=== PATIENT | female | born 1960 | race Caucasian/White ===

== ENCOUNTER 2018-02-08 07:30 | Inpatient (IN) | payer BC ==
--- NOTE | 2018-01-31 04:08 | HP ---
HISTORY AND PHYSICAL: DATE OF ADMISSION/SURGERY: 02/08/18 SURGEON: aPrisa Taylor MD.* (Dictated by DE Gandara) PROCEDURE: Left total knee arthroplasty. CHIEF COMPLAINT: Left knee pain. HISTORY OF PRESENT ILLNESS: Mr. Torres is a 57-year-old female with continued complaints of left knee pain. She has failed conservative management and elected to proceed with a left total knee arthroplasty which is scheduled for with Dr. Taylor. PAST MEDICAL HISTORY: 1. Chronic pain. 2. High cholesterol. 3. Hypertension. 4. Hypothyroidism. 5. Depression. PAST SURGICAL HISTORY: 1. Bilateral carpal tunnel release. 2. Bilateral Achilles tendon repair. 3. Removal of a growth on her lung. 4. Kidney stone removal on . CURRENT MEDICATIONS: 1. Venlafaxine 75 mg daily. 2. Vitamin D. 3. Simvastatin 10 mg daily. 4. Synthroid 75 mcg daily. 5. Lisinopril 10 mg daily. 6. Tramadol 50 mg daily as needed. 7. [place] 7.5/325 mg every 6 hours as needed. 8. Gabapentin 100 mg 2 to 3 times a day. ALLERGIES: None. FAMILY HISTORY: Cancer, diabetes, coronary artery disease and stroke. SOCIAL HISTORY: She is a 57-year-old female. She lives with her . She works as a county icu clerk. She smokes 3 to 4 cigarettes a day. She does not use drugs or alcohol. REVIEW OF SYSTEMS: A complete 14-point review of systems is reviewed by the patient is positive for hypothyroidism. She denies history of DVT, PE, hepatitis C, HIV or anesthesia problems. PHYSICAL EXAMINATION GENERAL: She is well developed, well nourished, in no acute distress. VITAL SIGNS: She stands 5 feet 5 inches tall, weighs 228 pounds. Her blood pressure is 132/84, heart rate is 97. HEENT: Normocephalic, atraumatic. NECK: Supple. No palpable lymph nodes. PULMONARY: Lungs are clear to auscultation bilaterally. CARDIO: Regular rate and rhythm. Strong S1 and S2. ABDOMEN: Soft, nontender, nondistended. NEUROLOGIC: She is alert and oriented x3. Cranial nerves II through XII are intact. MUSCULOSKELETAL: Left lower extremity skin is intact. There is no open wounds or abrasions. She has some tenderness over the medial and lateral joint line. There is a moderate joint effusion. Range of motion is 10 to 110 degrees bilaterally with patellofemoral crepitus. She has 2+ dorsalis pedis pulses, intact sensation. Her lower extremity muscular groups strengths are intact at 5/ 5. ASSESSMENT AND PLAN: Ms. Torers is a 57-year-old female with complaints of left knee pain secondary to end-stage osteoarthritis. She has failed conservative management and elected to proceed with a left total knee arthroplasty which is scheduled for 02/08/[address] Taylor discussed the risks and benefits of surgery at today's visit and all of her questions were answered. Coumadin was sent to her pharmacy for postoperative DVT prophylaxis. She will see Dr. Taylor back 2 weeks after the surgery. DE GANDARA [id number]/[facility] #: [id number] [place]
[~2018-02-08 07:30] MED LIST: Buffered Lidocaine 0.9% SYRIN* 5 ML/SYR SYRINGE INTRADERM ONE; Sodium Citrate/Citric Acid* 15 ML UDC PO ONE
--- OUTSIDE RECORDS SUMMARY | 2018-02-08 08:13 | XMS REPORT ---
:1960 External Reference #:[id number] Author Organization [employer] Address [address] [address] Phone [phone] Care Team Providers Name Role Phone Marcella Navarrete FNP Primary Care Physician Unavailable Payers Type Date Identification Numbers Payment Provider Subscriber Commercial Effective: Policy Number: [id number] [employer] Steffanie Torres 2012 PayID: [id number] [address] [address] [place] [address] Problems Date Description Provider Status Onset: 06/14/2015 Localized, primary osteoarthritis Parisa Taylor M.D. Active Family History Date Family Member(s) Problem(s) Comments General Arthritis General Breast Cancer General Liver Cancer General [place] General Stroke General Diabetes General Heart Disease Social History Type Date Description Comments Lives With Spouse Occupation accountimg food and beverage assistant ETOH Use Denies alcohol use Smoking Patient is a former smoker Exercise Type/Frequency Does not exercise Allergies, Adverse Reactions, Alerts Date Description Reaction Status Severity Comments 09/03/2014 NKDA active Medications Medication Date Status Form Strength Qnty SIG Indications Ordering Provider Coumadin 01/28/ Active Tablets 2mg 90tabs take 1-3 Parisa2017 tabs by Aury Taylor mouth at 5 at night as directed Simvastatin / Active Tablets 10mg 90tabs 1 by mouth Unknown 0000 every night at bedtime Synthroid / Active Tablets 75mcg 30tabs 1 by mouth Unknown 0000 every day Lisinopril 00/00/ Active Tablets 20mg 30tabs 1 by mouth Unknown 0000 every day Tramadol HCL 00/ Active Tablets 50mg 2 tablets Unknown 0000 tid prn Hydrocodone-A / Active Tablets 7.5-325mg 1 to 2 po Unknown cetaminophen 0000 at hs Gabapentin / Active Capsules 100mg 1 po bid Unknown 0000 for 1 week, than 2 po bid for 1 week, than 3 po tid.. Venlafaxine / Active Tablets 50mg take 1 Unknown HCL 0000 tablet by mouth every day with 150mg dose Keflex 07/10/ Hx Capsules 500mg 28caps 1 tab by Stacia 2014 - mouth randy Hopper M.D. 10/26/ times a 2016 day for 7 days Percocet 11/02/ Hx Tablets 5-325mg 80tabs 1-2 tabs Parisa 2013 - by mouth Aury Taylor 07/09/ q6 as 2014 needed pain Advil / Hx Capsules 200mg 200cap as needed Unknown 0000 - s 2014 Aleve / Hx Capsules 220mg 60caps 1 by mouth Unknown 0000 - twice a 06/14/ day as 2014 needed Effexor XR / Hx Caps ER 75mg 1 by mouth Unknown 0000 - 24HR every day 2016 Glucosamine / Hx Capsules 1 by mouth Unknown Chondroitin 0000 - every day 1500 Complex 2014 Vitamin D / Hx Tablets 30tabs every day Unknown 0000 - by mouth 2016 Motrin Ib / Hx Tablets 600mg 1 tid Unknown 0000 - 2016 Voltaren / Hx Gel 1% apply to Unknown 0000 - affected twice 2016 a day, as needed Medications Administered in Office Medication Date Status Form Strength Qnty SIG Indications Ordering Provider Depomedrol Administered Injection Parisa 80MG 015 Aury Taylor Injection Administered Injection Stacia Hyaluronan Or Asha Hopper M.D. Derivative, Euflexxa Per Dose Injection Administered Injection Stacia Hyaluronan Or Asha Hopper M.D. Derivative, Euflexxa Per Dose Injection Administered Injection Stacia Hyaluronan Or Asha Hopper M.D. Derivative, Euflexxa Per Dose Vital Signs Date Vital Result Comment 01/28/2018 Height 65.5 inches 5'5.50" Weight 229.00 lb Heart Rate 97 /min BP Systolic 132 mmHg BP Diastolic 84 mmHg Respiratory Rate 16 /min Body Temperature 98.8 F Pain Level 6 BMI (Body Mass Index) 37.5 kg/m2 10/27/2017 Height 65.5 inches 5'5.50" Weight 228.00 lb BP Systolic 140 mmHg BP Diastolic 84 mmHg Body Temperature 97.7 F BMI (Body Mass Index) 37.4 kg/m2 07/10/2015 Height 66 inches 5'6" Weight 246.00 lb Heart Rate 80 /min BP Systolic Sitting 112 mmHg BP Diastolic Sitting 88 mmHg BMI (Body Mass Index) 39.7 kg/m2 07/05/2015 Heart Rate 80 /min BP Systolic Sitting 116 mmHg BP Diastolic Sitting 80 mmHg 06/14/2015 Height 66 inches 5'6" Weight 260.00 lb Heart Rate 78 /min BP Systolic Sitting 130 mmHg BP Diastolic Sitting 80 mmHg BMI (Body Mass Index) 42.0 kg/m2 11/02/2014 Height 66 inches 5'6" Weight 293.00 lb Heart Rate 78 /min BP Systolic Sitting 120 mmHg BP Diastolic Sitting 80 mmHg BMI (Body Mass Index) 47.3 kg/m2 10/03/2014 Heart Rate 78 /min BP Systolic Sitting 128 mmHg BP Diastolic Sitting 88 mmHg 09/26/2014 Heart Rate 88 /min BP Systolic Sitting 128 mmHg BP Diastolic Sitting 82 mmHg 09/19/2014 Heart Rate 80 /min BP Systolic Sitting 130 mmHg BP Diastolic Sitting 88 mmHg 09/03/2014 Height 66 inches 5'6" Weight 290.00 lb Heart Rate 82 /min BP Systolic Sitting 132 mmHg BP Diastolic Sitting 80 mmHg BMI (Body Mass Index) 46.8 kg/m2 Results Description No Information Procedures Date CPT Code Description Status 06/14/2015 Inject/Drain Joint/Bursa Major Completed 10/03/2014 Inject/Drain Joint/Bursa Major Completed 09/26/2014 Inject/Drain Joint/Bursa Major Completed 09/19/2014 Inject/Drain Joint/Bursa Major Completed 09/03/2014 43443 Rad Exam; Knee Comp Completed Encounters Type Date Location Provider CPT E/M Dx Office Visit 10/27/2017 [facility] Paris[facility] Taylor M.D. 37784 M25.561 8:[facility] M25.562 M25.461 M25.462 M17.0 Office Visit 07/10/2015 8:40a [facility] [place], [address] 719.46 [facility] [facility] [place] RPA-C Office Visit 07/05/2015 11:30a [facility] Paris[facility] Taylor M.D. 19617 715.16 [facility] 719.46 719.06 715.36 Office Visit 11/02/2014 9:30a [facility] Parisa Taylor M.D. 45888 715.16 Of [facility] Office Visit 09/03/2014 9:15a [facility] Stacia Hopper, 25343 719.46 [facility] Future Appointment(s):02/21/2018 9:45 am - Parisa [facility] M.D. at [facility]02/08/2018 8:00 am - [place] Kwong at [facility]02/08/2018 8:00 am - Jet Uriostegui PA-C at [facility]02/08/2018 8:00 am - [place] Messer at [facility]02/08/2018 8:00 am - Paris[facility] M.D. [facility]01/28/2018 - Parisa Taylor M.D.M25.562 Pain in left kneeFollow up:Follow up: 2 weeks after purllpyQ03.462 Effusion, left kneeM17.0 Bilateral primary osteoarthritis of knee
--- OUTSIDE RECORDS SUMMARY | 2018-02-08 08:13 | XMS REPORT ---
:1960 External Reference #:[id number] Author Organization [facility] Address [address] [address] Phone [phone] Care Team Providers Name Role Phone Marcella Navarrete NP Care Team Information Family Services Manager Unavailable Payers Type Date Identification Numbers Payment Provider Subscriber Commercial Effective: Policy Number: [id number] [facility] [employer] Steffanie Torres 2011 PayID: [id number] [address] [address] [place] [address] Health Maintenance Expires: 11/14/2014 Policy Number: [facility] Cesar Torres [facility] ([facility] – [place], [place]) [id number] [place] Group Number: [id number] [address] [address] Group Name: [place] [address] PayID: [id number] Problems Date Description Provider Status Onset: 08/06/2003 Benign essential hypertension Debbie Isidro NP Active Onset: 08/06/2003 Obesity Debbie Isidro NP Active Onset: 03/07/2008 Hypothyroidism Serafin Roger MD Active Onset: 10/09/2014 Localized, primary osteoarthritis DigiovanCely michelleMarcella, AUTOCUTTER Active Onset: 01/01/2014 Localized, primary osteoarthritis DigiovanMarcella michelle, AUTOCUTTER Active of the lower leg Onset: 01/01/2014 Low back pain Marcella Navarrete, AUTOCUTTER Active Onset: 03/21/2012 Mixed hyperlipidemia KellieiovanMarcella michelle, AUTOCUTTER Active Onset: 06/10/2010 Vitamin D deficiency DigiovanMarcella michelle, AUTOCUTTER Active Onset: 12/11/2009 Gastroesophageal reflux disease Marcella Navarrete, AUTOCUTTER Active Onset: 12/11/2009 Insomnia Marcella Navarrete NP Active Onset: 04/16/2015 Female climacteric state Marcella Navarrete NP Active Family History Date Family Member(s) Problem(s) Comments Mother Cancer, Breast Social History Type Date Description Comments Education Highest level completed, 12th grade Marital Status Lives With Spouse 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 ETOH Use Occasionally consumes alcohol Recreational Drug Use Denies Drug Use Daily Caffeine Consumes on average 1 soda per day Exercise Limitations Joint Pain Allergies, Adverse Reactions, Alerts Date Description Reaction Status Severity Comments 11/13/2008 NKDA active Medications Medication Date Status Form Strength Qnty SIG Indications Ordering Provider Levothyroxine Active Tablets 75mcg 90tabs 1 by E03.9 Digiovanna Sodium 017 mouth , every Marcella, day AUTOCUTTER Tramadol HCL ER Active Tablets ER 200mg 1 by M19. Unknown 016 24HR mouth every day M54.5 Lisinopril 07/25/2015 Active Tablets 10mg 90tabs Take 1 I10 Digiovanna, Tablet GAURAV Naranjo Daily Hydrocodone-Ac 05/20/2015 Active Tablets 7.5-325 1 every 6 M1. [place] etaminophen mg hours as Moo needed Venlafaxine 04/14/2015 Active Caps ER 75mg 90caps Take 1 N95.1 Digiovanna, HCL ER 24HR Capsule GAURAV Naranjo Daily G47.00 Voltaren 03/06/2015 Active Gel 1% apply 2 grams . Unknown to affected area four times a day as needed Simvastatin 09/26/2012 Active Tablets 10mg 90t Take 1 Tablet E78.2 Digiovanna abs Every Day In , The Evening Marcella AUTOCUTTER Acetaminophen Active Tablets 500mg 2 po q4h prn Unknown Extra Strength Gabapentin Active Capsules 300mg tid Moo Schrader Levothyrn(S) Tab 05/10/2016 - Hx 0.075 90u take 1 tablet E03.9 Digiovanna 0.075MG 05/03/2017 mg nit every day , s Marcella, AUTOCUTTER Venlafaxine HCL 04/24/2016 - Hx Tablets ER 75mg 7ta 1 po daily Digiovanna ER 05/01/2016 24HR bs , Marcella, AUTOCUTTER Levothyrn(S) Tab 11/25/2015 - Hx 0.075 90u Take 1 Tablet Digiovanna 0.075MG 11/25/2015 mg nit Daily , s Marcella, AUTOCUTTER Benzonatate 06/07/2015 - Hx Capsules 200mg 30c 1 by mouth 465.9 Digiovanna 07/16/2015 aps every 8 hours , as needed for Marcella, cough, may AUTOCUTTER cause drowsiness Tramadol HCL 03/06/2015 - Hx Tablets 50mg 2 by mouth up M54.5 Unknown 05/03/2017 to 4X/day as needed M19.91 Glucosamine-MSM 03/06/2015 - Hx Tablets 1000mg OTC 1 po M19.91 Unknown 11/15/2015 daily Oxycodone-Acetamin 11/01/2014 - Hx Tablets 5-325mg 120tab 2 by verona Taylor 02/14/2015 s mouth 6 Vivek, HRS as DR needed pain Lisinopril 10/09/2014 - Hx Tablets 20mg 90tabs take 1/2 Digiovann 07/25/2015 tablet a, daily Marcella, AUTOCUTTER Levothyroxine 09/29/2013 - Hx Tablets 75mcg 90tabs 1 by E03.9 Digiovann Sodium 05/10/2016 mouth a, every day Marcella, AUTOCUTTER Effexor XR 04/18/2013 - Hx Caps ER 75mg 90caps 1 po qd Digiovann 04/14/2015 24HR a, Marcella, AUTOCUTTER Amoxicillin 03/31/2007 - Hx Capsules 500mg 30caps 1 Tab PO Marissa Isidro 03/07/2008 tid X 10 se,AUTOCUTTER Days Mobic 02/21/2007 - Hx Tablets 7.5mg 60tabs 1-2 PO qd Marissa Isidro 03/07/2008 se,AUTOCUTTER Soma 02/10/2007 - Hx Tablets 350mg 30tabs 1/2-1 po Marissa Isidro 03/07/2008 tid prn se,AUTOCUTTER Entex Pse 02/05/2005 - Hx Tablets 600mg;120 20tabs 1po q 12h Marissa Isidro 03/07/2008 mg se,AUTOCUTTER Levoxyl 08/13/2003 - Hx Tablets O.O5mg 30tabs 1 po qd Marissa Isidro 03/07/2008 se,AUTOCUTTER Zantac 08/13/2003 - Hx Tablets 150mg 30tabs 1 po QHS Marissa Isidro 03/07/2008 se,AUTOCUTTER Ibuprofen - Hx Tablets 200mg prn Pain Unknown 03/06/2015 Immunizations CPT Code Status Date Vaccine Reaction Lot # [id number] Given 08/16/2015 Fluvirin Immunization [facility] 05765 Given 04/16/2015 Pneumococcal 23 Immunization [id number] Adult Or Immunosuppressed Patient 94155 Given 07/20/2014 Afluria Or Fluvirin Flu Vac Intramuscular 58797 Given 08/16/2012 Afluria Or Fluvirin Flu Vac Intramuscular 75696 Given 09/18/2011 Afluria Or Fluvirin Flu Vac VIS DATE 06/09/11 Intramuscular 75790 Given 12/11/2009 Tdap (Adacel) Ages 7 And Above Only 16133 Given 09/29/2002 Afluria Or Fluvirin Flu Vac Intramuscular 32245 Refused 11/02/2017 Influenza Vac, 3 Yrs & Older, Quadrivalent, Split, Im Use Vital Signs Date Vital Result Comment 01/17/2018 Weight 231.56 lb Heart Rate 76 /min BP Systolic 110 mmHg BP Diastolic 64 mmHg Respiratory Rate 18 /min Height 65.25 inches 5'5.25" 01/17/18 BMI (Body Mass Index) 38.2 kg/m2 11/02/2017 Weight 229.00 lb Heart Rate 88 /min BP Systolic 130 mmHg BP Diastolic 80 mmHg Respiratory Rate 18 /min Height 65.25 inches 5'5.25" BMI (Body Mass Index) 37.8 kg/m2 05/03/2017 Weight 294.00 lb Heart Rate 74 /min BP Systolic 120 mmHg BP Diastolic 80 mmHg Respiratory Rate 18 /min Height 65.25 inches 5'5.25" BMI (Body Mass Index) 48.5 kg/m2 10/28/2016 Weight 278.00 lb Heart Rate 82 /min BP Systolic 122 mmHg BP Diastolic 78 mmHg Height 65.25 inches 5'5.25" BMI (Body Mass Index) 45.9 kg/m2 04/24/2016 Weight 272.00 lb Heart Rate 82 /min BP Systolic 128 mmHg BP Diastolic 72 mmHg Respiratory Rate 18 /min Height 65.25 inches 5'5.25" BMI (Body Mass Index) 44.9 kg/m2 10/15/2015 Weight 248.00 lb Heart Rate 84 /min BP Systolic 142 mmHg L/LG BP Diastolic 92 mmHg L/LG Respiratory Rate 20 /min Height 65.25 inches 5'5.25" BMI (Body Mass Index) 40.9 kg/m2 06/07/2015 Body Temperature 99.0 F Weight 254.00 lb Heart Rate 98 /min BP Systolic 138 mmHg BP Diastolic 76 mmHg Respiratory Rate 19 /min Height 65.25 inches 5'5.25" O2 % BldC Oximetry 94 % Ra BMI (Body Mass Index) 41.9 kg/m2 04/16/2015 Weight 258.00 lb Down 11# Heart Rate 94 /min BP Systolic 142 mmHg R/LG BP Diastolic 88 mmHg R/LG Respiratory Rate 20 /min Height 65.25 inches 5'5.25" BMI (Body Mass Index) 42.6 kg/m2 01/22/2015 Weight 269.00 lb Down 25# Heart Rate 98 /min BP Systolic 148 mmHg R/LG BP Diastolic 90 mmHg R/LG Respiratory Rate 20 /min Height 65.5 inches 5'5.50" BMI (Body Mass Index) 44.1 kg/m2 10/09/2014 BP Systolic 136 mmHg BP Diastolic 96 mmHg 10/09/2014 Weight 294.00 lb Heart Rate 74 /min BP Systolic 132 mmHg BP Diastolic 90 mmHg Respiratory Rate 18 /min Height 66 inches 5'6" 04/02/2014 BP Systolic 128 mmHg BP Diastolic 82 mmHg 04/02/2014 Weight 300.00 lb Heart Rate 88 /min BP Systolic 150 mmHg BP Diastolic 90 mmHg Respiratory Rate 20 /min Height 66 inches 5'6" 06/10/2009 Weight 270.00 lb Heart Rate 84 /min BP Systolic 130 mmHg BP Diastolic 92 mmHg 11/13/2008 Weight 265.00 lb Heart Rate 76 /min BP Systolic 136 mmHg BP Diastolic 76 mmHg 03/07/2008 Weight 254.00 lb Heart Rate 79 /min BP Systolic 145 mmHg BP Diastolic 90 mmHg 03/03/2007 Heart Rate 70 /min BP Systolic 138 mmHg BP Diastolic 88 mmHg 02/10/2007 Heart Rate 70 /min BP Systolic 132 mmHg BP Diastolic 72 mmHg 07/24/2004 Weight 194.00 lb Heart Rate 68 /min BP Systolic 120 mmHg BP Diastolic 78 mmHg 08/13/2003 BP Systolic 120 mmHg BP Diastolic 80 mmHg Results Test Date Test Result H/L Range Note Laboratory test 01/17/2018 Hepatitis C Virus <pending> finding Antibody Laboratory test 10/28/2017 TSH 1.82 uIU/mL 0.35-4.94 1 finding Magnesium 2.1 mg/dL 1.5-2.7 1 Vit D25oh 31 ng/mL 31-100 1 Lipid Treatment 10/28/2017 Cholesterol 167 mg/dL 50-199 1 Triglycerides 140 mg/dL 30-200 1 HDL 45 mg/dL 35-85 1, 2 Chol/ HDL Ratio 3.7 ratio 3.7-5.6 1 VLDL 28 mg/dL 2-29 1 LDL (Calc) 94 mg/dL 20-99 1, 3 Alt 16 U/L 3-42 1 Ast 14 U/L 8-42 1 Basic (BMP) 10/28/2017 Sodium 140 mmol/L 135-146 1, 4 Potassium 4.3 mmol/L 3.5-5.2 1 Chloride# 102 mmol/L 97-110 1, 5 Carbon Dioxide 29 mmol/L 24-34 1 Glucose 94 mg/dL 70-105 1 Creatinine 0.8 mg/dL 0.5-1.4 1 Calcium 9.9 mg/dL 8.5-10.2 1 Non Tamiko Egfr >60 >60 1, 6 Tamiko Egfr >60 >60 1, 7 Anion Gap 9 mmol/L 7-16 1, 8 BUN 15 mg/dL 6-26 1 CBC With Auto Diff 10/28/2017 WBC 9.5 K/uL 4.1-11.0 1 RBC 4.95 M/uL 4.00-5.40 1 Hemoglobin 16.4 gm/dL High 12.0-16.0 1 Hematocrit 47.4 % High 36.0-47.0 1 MCV 95.9 fL 80.0-97.0 1 MCH 33.2 pg High 27.0-32.0 1 MCHC 34.6 g/dL 32.0-36.0 1 RDW 14.7 % High 11.5-14.5 1 PLT Count 256 K/ul 140-400 1 MPV 9.5 FL 7.1-10.7 1 Neutrophil 59.6 % 35.0-75.0 1 Lymphocyte 28.5 % 16.0-52.0 1 Monocyte 9.5 % 2.0-10.0 1 Eosinophil 1.7 % 0.0-5.0 1 Basophil 0.7 % 0.0-4.0 1 Abs Neutrophils 5.6 K/uL 2.1-8.0 1 Abs Lymphocytes 2.7 K/uL 0.8-5.5 1 Abs Monocytes 0.9 K/uL 0.1-1.0 1 Abs Eosinophils 0.2 K/uL 0.0-0.5 1 Abs Basophils 0.1 K/uL 0.0-0.3 1 Laboratory test finding 05/03/2017 Fit(Fecal Occult Blood) Negative Negative 9 Lipid Treatment 05/03/2017 Cholesterol 187 mg/dL 50-199 Triglycerides 236 mg/dL High 30-200 HDL 42 mg/dL 35-85 10 Chol/ HDL Ratio 4.5 ratio 3.7-5.6 VLDL 47 mg/dL High 2-29 LDL (Calc) 98 mg/dL 20-99 11 Alt 22 U/L 3-42 Ast 17 U/L 8-42 Laboratory test finding 04/26/2017 TSH 2.30 uIU/mL 0.35-4.94 12 Vit D,25 Hydroxy 30 ng/mL Low 31-100 12 Basic (BMP) 04/26/2017 Sodium 140 mmol/L 135-146 12, 13 Potassium 4.5 mmol/L 3.5-5.2 12 Chloride# 104 mmol/L 97-110 12, 14 Carbon Dioxide 27 mmol/L 24-34 12 Glucose 104 mg/dL 70-105 12 BUN 16 mg/dL 6-26 12 Creatinine 0.9 mg/dL 0.5-1.4 12 Calcium 9.8 mg/dL 8.5-10.2 12 Non Tamiko Egfr >60 >60 12, 15 Tamiko Egfr >60 >60 12, 16 Anion Gap 14 mmol/L 7-16 12, 17 Lipid Treatment 10/20/2016 Cholesterol 179 mg/dL 50-199 18 Triglycerides 139 mg/dL 30-200 18 HDL 51 mg/dL 35-85 18, 19 Chol/ HDL Ratio 3.5 ratio Low 3.7-5.6 18 VLDL 28 mg/dL 2-29 18 LDL (Calc) 100 mg/dL High 20-99 18, 20 Alt 22 U/L 3-42 18 Ast 17 U/L 8-42 18 Basic (BMP) 10/20/2016 Sodium 136 mmol/L 134-142 18 Potassium 4.7 mmol/L 3.5-5.2 18 Chloride 100 mmol/L 97-109 18 Carbon Dioxide 27 mmol/L 24-34 18 Glucose 92 mg/dL 70-105 18 BUN 16 mg/dL 6-26 18 Creatinine 0.8 mg/dL 0.5-1.4 18 Calcium 9.4 mg/dL 8.5-10.2 18 Anion Gap 14 mmol/L 6-14 18 Non Tamiko Egfr >60 >60 18, 21 Tamiko Egfr >60 >60 18, 22 CBC With Auto Diff 10/20/2016 WBC 8.6 K/uL 4.1-11.0 18 RBC 4.67 M/uL 4.00-5.40 18 Hemoglobin 15.3 gm/dL 12.0-16.0 18 Hematocrit 44.0 % 36.0-47.0 18 MCV 94.3 fL 80.0-97.0 18 MCH 32.8 pg High 27.0-32.0 18 MCHC 34.8 g/dL 32.0-36.0 18 RDW 13.9 % 11.5-14.5 18 PLT Count 244 K/ul 140-400 18 Neutrophil 56.1 % 35.0-75.0 18 Lymphocyte 30.1 % 16.0-52.0 18 Monocyte 11.1 % High 2.0-10.0 18 Eosinophil 1.9 % 0.0-5.0 18 Basophil 0.8 % 0.0-4.0 18 Abs Neutrophils 4.8 K/uL 2.1-8.0 18 Abs Lymphocytes 2.6 K/uL 0.8-5.5 18 Abs Monocytes 1.0 K/uL 0.1-1.0 18 Abs Eosinophils 0.2 K/uL 0.0-0.5 18 Abs Basophils 0.1 K/uL 0.0-0.3 18 Laboratory test finding 10/20/2016 Vit D,25 Hydroxy 24 ng/mL Low 31-100 18 TSH 3.77 uIU/mL 0.35-4.94 18 Laboratory test finding 04/17/2016 TSH 3.15 uIU/mL 0.35-4.94 23 Lipid Treatment 04/17/2016 Cholesterol 172 mg/dL 50-199 23 Triglycerides 150 mg/dL 30-200 23 HDL 46 mg/dL 35-85 23, 24 Chol/ HDL Ratio 3.7 ratio 3.7-5.6 23 VLDL 30 mg/dL High 2-29 23 LDL (Calc) 96 mg/dL 20-99 23, 25 Alt 22 U/L 3-42 23 Ast 19 U/L 8-42 23 Basic (BMP) 04/17/2016 Sodium 136 mmol/L 134-142 23 Potassium 4.6 mmol/L 3.5-5.2 23 Chloride 101 mmol/L 97-109 23 Carbon Dioxide 29 mmol/L 24-34 23 Glucose 93 mg/dL 70-105 23 BUN 15 mg/dL 6-26 23 Creatinine 0.8 mg/dL 0.5-1.4 23 Calcium 9.5 mg/dL 8.5-10.2 23 Anion Gap 11 mmol/L 6-14 23 Non Tamiko Egfr >60 >60 23, 26 Tamiko Egfr >60 >60 23, 27 CBC With Auto Diff 10/04/2015 WBC 6.8 K/uL 4.1-11.0 28 RBC 4.74 M/uL 4.00-5.40 28 Hemoglobin 15.2 gm/dL 12.0-16.0 28 Hematocrit 45.4 % 36.0-47.0 28 MCV 95.7 fL 80.0-97.0 28 MCH 32.0 pg 27.0-32.0 28 MCHC 33.4 g/dL 32.0-36.0 28 RDW 13.7 % 11.5-14.5 28 PLT Count 201 K/ul 140-400 28 Neutrophil 55.1 % 35.0-75.0 28 Lymphocyte 33.3 % 16.0-52.0 28 Monocyte 8.4 % 2.0-10.0 28 Eosinophil 2.3 % 0.0-5.0 28 Basophil 0.9 % 0.0-4.0 28 Abs Neutrophils 3.8 K/uL 2.1-8.0 28 Abs Lymphocytes 2.3 K/uL 0.8-5.5 28 Abmon 0.6 K/uL 0.1-1.0 28 Abs Eosinophils 0.2 K/uL 0.0-0.5 28 Abs Basophils 0.1 K/uL 0.0-0.3 28 Basic (BMP) 10/04/2015 Sodium 135 mmol/L 134-142 28 Potassium 4.7 mmol/L 3.5-5.2 28 Chloride 101 mmol/L 97-109 28 Carbon Dioxide 28 mmol/L 24-34 28 Glucose 91 mg/dL 70-105 28 BUN 14 mg/dL 6-26 28 Creatinine 0.8 mg/dL 0.5-1.4 28 Calcium 9.6 mg/dL 8.5-10.2 28 Anion Gap 11 mmol/L 6-14 28 Non Tamiko Egfr >60 >60 28, 29 Tamiko Egfr >60 >60 28, 30 Lipid Treatment 10/04/2015 Cholesterol 190 mg/dL 50-199 28 Triglycerides 115 mg/dL 30-200 28 HDL 50 mg/dL 35-85 28, 31 Chol/ HDL Ratio 3.8 ratio 3.7-5.6 28 VLDL 23 mg/dL 2-29 28 LDL (Calc) 117 mg/dL High 20-99 28, 32 Alt 19 U/L 3-42 28 Ast 18 U/L 8-42 28 Laboratory test finding 10/04/2015 Vit D,25 Hydroxy 38 ng/mL 31-100 28 TSH 2.69 uIU/mL 0.35-4.94 28 Laboratory test finding 06/14/2015 Rheumatoid Factor <10.0 IU/mL 0.0- 10.0 33 Priscila Screen NEGATIVE (Neg) 33, 34 CRP (C-Reactive) 1.24 mg/dL High 0.00-0.75 33 Esr 16 mm/hr 0-20 33 Laboratory test finding 06/08/2015 Sedimentation Rate 11 mm/hr 0-30 35 Protime 06/08/2015 Protime 13.0 seconds 12.1-14.9 Inr 1.0 0.9-1.1 36 Laboratory test finding 06/08/2015 Act Partial Thrombo 31.6 seconds 23.9- 34.3 37 Time Differential WBC Confirm 06/08/2015 Total Cells Counted 100 #CELLS Band% 12 % High 0-8 Neutrophils% 69 % 33-73 Lymph% 9 % Low 17-56 38 Monocyte% 8 % 0-10 Eosinophil% 2 % 0-5 Platelet Estimate NORMAL Anisocytosis 0-1+ CBC W/Automated Diff 06/08/2015 White Blood Count 10.2 K/uL 3.1-10.7 Red Blood Count 4.68 M/uL 3.90-5.40 Hemoglobin 14.8 gm/dL 11.6-15.8 Hematocrit 42.9 % 36.0-46.1 Mean Cell Volume 91.7 fl 80.9-99.0 Mean Corpuscular HGB 31.6 pg 25.9-32.7 Mean Corpuscular HGB Conc 34.5 g/dL High 30.8-34.3 Platelet Count 247 K/uL 155-360 Red Cell Distri Width SD 45.2 fl 3-47 Red Cell Distri Width %CV 13.7 % 11.7-14.4 Mean Platelet Volume 11.3 fL 8.9-12.4 Neut# 8.00 K/uL High 1.0-7.0 Lymph # 1.30 K/uL Low 1.8-7.0 [place] # 0.69 K/uL 0.3-0.9 Eos # 0.18 K/uL 0.0-0.5 Baso # 0.06 K/uL 0.0-0.1 Comprehensive Metabolic Panel 06/08/2015 Glucose 100 mg/dL 74-106 BUN 8 mg/dL 7-18 Creatinine 0.8 mg/dL 0.6-1.3 Glom Filtration Rate, Estimate >60 mL/min >60 If >60 mL/min >60 39 BUN/Creat 10.0 ratio Sodium 134 mmol/L Low 136-145 Potassium 4.1 mmol/L 3.5-5.1 Chloride 99 mmol/L 98-107 Carbon Dioxide 29 mmol/L 21-32 Anion Gap 6 mEq/L Low 8-16 Calcium 8.9 mg/dL 8.5-10.1 Total Protein 7.7 g/dL 6.4-8.2 Albumin 4.0 g/dL 3.4-5.0 Globulin 3.7 g/dL 1.9-4.3 Alb/Glob 1.1 ratio Bilirubin,Total 0.3 mg/dL 0.2-1.0 Sgot/Ast 22 U/L 15-37 SGPT/Alt 39 U/L 12-78 Alkaline Phosphatase 117 U/L 45-117 Laboratory test 04/16/2015 HPV Laboratory Allia 40 finding <SEE NOTE> Laboratory test 04/16/2015 Pap Smear Thin SEE NOTE 41 finding Prep Basic (BMP) 04/10/2015 Sodium 135 mmol/L 134-142 Potassium 4.3 mmol/L 3.5-5.2 Chloride 100 mmol/L 97-109 Carbon Dioxide 27 mmol/L 24-34 Glucose 82 mg/dL 70-105 BUN 12 mg/dL 6-26 Creatinine 0.8 mg/dL 0.5-1.4 Calcium 9.3 mg/dL 8.5-10.2 Anion Gap 12 mmol/L 6-14 Non Tamiko Egfr >60 >60 42 Tamiko Egfr >60 >60 43 Lipid Treatment 04/10/2015 Cholesterol 150 mg/dL 50-199 Triglycerides 125 mg/dL 30-200 HDL 44 mg/dL 35-85 44 Chol/ HDL Ratio 3.4 ratio Low 3.7-5.6 VLDL 25 mg/dL 2-29 LDL (Calc) 81 mg/dL 20-99 45 Alt 19 U/L 3-42 Ast 18 U/L 8-42 Laboratory test finding 04/10/2015 TSH 2.19 uIU/mL 0.35-4.94 Vit D,25 Hydroxy 31 ng/mL 31-100 Laboratory test finding 10/03/2014 % Baso. 1.6 % 0.0-2.0 % Eos. 3.2 % 0.0-4.0 % Lymph 30 % 20-44 % [place] 8.5 % 2.0-10.0 % Rosa 57 % 50-70 Absolute Baso. 0.1 K/ul 0.0-0.3 Absolute Eos. 0.3 K/ul 0.0-0.5 Absolute Lymph. 2.6 K/ul 0.8-4.8 Absolute [place]. 0.7 K/ul 0.1-1.0 Absolute Rosa. 4.96 K/ul 2.05-7.63 Alt 31.0 U/L 9.0-52.0 Ast 20.0 U/L 14.0-36.0 BUN 18.0 mg/dL 7.0-18.0 BUN/Creat Ratio 22.5 ratio High 12.0-20.0 Calcium 10.3 mg/dL 8.7-10.5 Chloride 103.0 mmol/L 98.0-107.0 Co2 27.0 mmol/L 22.0-30.0 Creatinine-Serum 0.8 mg/dL 0.7-1.2 Glucose 98.0 mg/dL 75.0-110.0 HCT 46.4 % 37.0-51.0 HGB 15.5 Gm/dl 12.0-16.0 MCH 32.0 pg 26.0-32.0 MCHC 33.5 g/dL 31.0-36.0 MCV 95.4 Fl 80.0-97.0 MPV 8.4 fL 6.0-10.0 PLT 238 K/ul 140-440 Potasium 4.6 mmol/L 3.6-5.0 RBC 4.9 M/ul 4.2-6.3 RDW 12.9 % 11.5-14.5 Sodium 140.0 mmil/L 137.0-145.0 TSH 2.70 uIU/ml 0.50-6.00 Vitamin D 27.6 ng/mL Low 30.0-96.0 WBC 8.7 K/ul 4.1-10.9 eGFR 79.4 Lipid Panel 10/03/2014 Chol/HDL Ratio 4.1 ratio Cholesterol 199.0 mg/dL 50.0-199.0 HDL 49.0 mg/dL 29.0-86.0 LDL, Calculated 121.4 mg/dL 20.0-129.0 Triglycerides 143.0 mg/dL 30.0-249.0 vLDL 28.6 ng/dL Laboratory test finding 03/23/2014 % Baso. 1.1 % 0.0-2.0 % Eos. 2.8 % 0.0-4.0 % Lymph 30 % 20-44 % [place] 7.7 % 2.0-10.0 % Rosa 59 % 50-70 Absolute Baso. 0.1 K/ul 0.0-0.3 Absolute Eos. 0.3 K/ul 0.0-0.5 Absolute Lymph. 3.2 K/ul 0.8-4.8 Absolute [place]. 0.8 K/ul 0.1-1.0 Absolute Rosa. 6.18 K/ul 2.05-7.63 Alt 33.0 U/L 9.0-52.0 Ast 23.0 U/L 14.0-36.0 BUN 14.0 mg/dL 7.0-18.0 BUN/Creat Ratio 17.5 ratio 12.0-20.0 Calcium 9.9 mg/dL 8.7-10.5 Chloride 103.0 mmol/L 98.0-107.0 Co2 27.0 mmol/L 22.0-30.0 Creatinine-Serum 0.8 mg/dL 0.7-1.2 Glucose 106.0 mg/dL 75.0-110.0 HCT 43.8 % 37.0-51.0 HGB 15.2 Gm/dl 12.0-16.0 MCH 33.2 pg High 26.0-32.0 MCHC 34.7 g/dL 31.0-36.0 MCV 95.7 Fl 80.0-97.0 MPV 8.6 fL 6.0-10.0 PLT 267 K/ul 140-440 Potasium 4.5 mmol/L 3.6-5.0 RBC 4.6 M/ul 4.2-6.3 RDW 13.0 % 11.5-14.5 Sodium 139.0 mmil/L 137.0-145.0 TSH 2.63 uIU/ml 0.50-6.00 Vitamin D 28.4 ng/mL Low 30.0-100.0 WBC 10.6 K/ul 4.1-10.9 eGFR 79.4 Lipid Panel 03/23/2014 Chol/HDL Ratio 3.8 ratio Cholesterol 189.0 mg/dL 50.0-199.0 HDL 50.0 mg/dL 29.0-86.0 LDL, Calculated 114.8 mg/dL 20.0-129.0 Triglycerides 121.0 mg/dL 30.0-249.0 vLDL 24.2 ng/dL Laboratory test finding 01/01/2014 TSH 4.49 uIU/ml 0.50-6.00 Lipid Panel 09/29/2013 Chol/HDL Ratio 3.7 ratio Cholesterol 190.0 mg/dL 50.0-199.0 HDL 52.0 mg/dL 29.0-86.0 LDL, Calculated 113.6 mg/dL 20.0-129.0 Triglycerides 122.0 mg/dL 30.0-249.0 vLDL 24.4 ng/dL Laboratory test finding 09/29/2013 Alt 49.0 U/L 9.0-52.0 Ast 26.0 U/L 14.0-36.0 TSH 22.82 uIU/ml 0.50-6.00 46 Laboratory test finding 06/26/2013 FT4 0.76 ng/dL 0.75-1.54 TSH 11.22 uIU/ml High 0.50-6.00 Lipid Panel 06/21/2013 Chol/HDL Ratio 5.0 ratio Cholesterol 271.0 mg/dL High 50.0-199.0 HDL 54.0 mg/dL 29.0-86.0 LDL, Calculated 188.8 mg/dL High 20.0-129.0 Triglycerides 141.0 mg/dL 30.0-249.0 vLDL 28.2 ng/dL Laboratory test finding 06/21/2013 Alt 66.0 U/L High 9.0-52.0 Ast 34.0 U/L 14.0-36.0 TSH 9.08 uIU/ml High 0.50-6.00 Vitamin D 25.1 ng/mL Low 30.0-100.0 Laboratory test finding 04/18/2013 % Baso. 1.5 % 0.0-2.0 % Eos. 1.8 % 0.0-4.0 % Lymph 27 % 20-44 % [place] 7.2 % 2.0-10.0 % Rosa 63 % 50-70 Absolute Baso. 0.1 K/ul 0.0-0.3 Absolute Eos. 0.2 K/ul 0.0-0.5 Absolute Lymph. 2.5 K/ul 0.8-4.8 Absolute [place]. 0.7 K/ul 0.1-1.0 Absolute Rosa. 5.81 K/ul 2.05-7.63 BUN 15.0 mg/dL 7.0-18.0 BUN/Creat Ratio 18.8 ratio 12.0-20.0 Calcium 10.0 mg/dL 8.7-10.5 Chloride 106.0 mmol/L 98.0-107.0 Co2 25.0 mmol/L 22.0-30.0 Creatinine-Serum 0.8 mg/dL 0.7-1.2 Glucose 97.0 mg/dL 75.0-110.0 HCT 46.1 % 37.0-51.0 HGB 14.3 Gm/dl 12.0-16.0 MCH 30.4 pg 26.0-32.0 MCHC 31.1 g/dL 31.0-36.0 MCV 97.5 Fl High 80.0-97.0 MPV 8.3 fL 6.0-10.0 PLT 271 K/ul 140-440 Potasium 4.5 mmol/L 3.6-5.0 RBC 4.7 M/ul 4.2-6.3 RDW 13.0 % 11.5-14.5 Sodium 143.0 mmil/L 137.0-145.0 WBC 9.2 K/ul 4.1-10.9 eGFR 79.7 Laboratory test finding 03/07/2013 Culture Urine See Note 47 Laboratory test finding 02/23/2013 Alb/Glob 1.1 ratio Albumin 3.7 g/dL 3.5-5.0 Alkaline Phosphatase 97 U/L 50-136 Anion Gap 13 mEq/L 8-16 BUN 21 mg/dL 5-23 BUN/Creat 26.2 ratio Bas% 0.5 % 0.0-1.1 Baso # 0.05 K/uL 0.0-0.1 Bilirubin,Total 0.2 mg/dL 0.2-1.2 Calcium 8.8 mg/dL 8.5-10.1 Carbon Dioxide 28 mEq/L 18-29 Chloride 108 mmol/L High 98-107 Creatinine 0.8 mg/dL 0.5-1.4 Eo% 2.9 % 0.0-6.6 Eos # 0.29 K/uL 0.0-0.5 Globulin 3.3 g/dL 1.9-4.3 Glom Filtration Rate, Estimate >60 mL/min >60 Glucose 117 mg/dL High 76-115 HCG Serum, Qualitative Negative Hematocrit 41.0 % 36.0-46.1 Hemoglobin 14.2 gm/dL 11.6-15.8 If >60 mL/min >60 48 Lipase 159 U/L 28-380 Lymph # 1.89 K/uL 0.8-3.4 Lymph % 18.8 % 17.0-46.1 Mean Cell Volume 93.0 fl 80.9-99.0 Mean Corpuscular HGB 32.2 pg 25.9-32.7 Mean Corpuscular HGB Conc 34.6 g/dL High 30.8-34.3 Mean Platelet Volume 11.9 fL 8.9-12.4 [place] # 0.86 K/uL 0.3-0.9 [place] % 8.5 % 4.3-13.2 Neut# 6.98 K/uL 1.0-7.0 Neut% 69.3 % 40.4-72.8 Platelet Count 245 K/uL 155-360 Potassium 4.3 mmol/L 3.5-5.1 Red Blood Count 4.41 M/uL 3.90-5.40 Red Cell Distri Width %CV 14.9 % High 11.7-14.4 Red Cell Distri Width SD 49.5 fl High 3-47 SGPT/Alt 63 U/L 30-65 Sgot/Ast 33 U/L 16-40 Sodium 145 mmol/L 136-145 Total Protein 7.0 g/dL 6.3-8.0 White Blood Count 10.1 K/uL 3.1-10.7 Urine Bilirubin - Dipstick Negative Negative Urine Blood Large High Negative Urine Clarity Clear Clear Urine Color Yellow Yellow Urine Epithelial Cells Few None Seen /lpf Urine Glucose - Dipstick Negative mg/dL Negative Urine HCG (Qualitative) Negative Negative 49 Urine Ketone Negative mg/dL Negative Urine Leuk Esterase Negative Negative Urine Nitrite - Dipstick Negative Negative Urine PH 6.0 Low 6.5-7.5 Urine Protein - Dipstick Trace mg/dL Negative Urine RBC 20-30 rbc/hpf High 0-7 Urine Screen See Note 50 Urine Specific [place] 1.020 1.010-1.030 Urine Urobilinogen - Dipstick 0.2 E.U./dL 0.2-1.0 Urine WBC 2-5 wbc/hpf 0-7 CBC With Auto Diff 11/13/2008 WBC 10.2 K/ul 4.0-10.9 51 RBC 4.74 M/ul 4.20-5.40 51 Hemoglobin 14.3 GM/dl 12.5-16.0 51 Hematocrit 42.0 % 36.0-47.0 51 MCV 88.4 FL 80.0-97.0 51 MCH 30.1 pg 27.0-31.0 51 MCHC 34.1 g/dL 32.0-36.0 51 RDW 16.3 % High 11.5-14.5 51 Platelet Count 248 K/ul 140-440 51 Neutrophils 62.6 % 50-70 51 Lymphocytes 24.7 % 20-44 51 Monocytes 9.6 % High 2-9 51 Eosinophil 2.5 % 0-4 51 Basophil 0.6 % 0-2 51 Absolute Neutrophils 6.4 K/ul 2.05-7.63 51 Absolute Lymphocytes 2.5 K/ul 0.8-4.8 51 Absolute Monocytes 1.0 K/ul 0.1-1.0 51 Absolute Eosinophils 0.3 K/ul 0.1-0.5 51 Absolute Basophils 0.1 K/ul 0.0-0.3 51 Hematology Comment (Comm2) N/A 51 Basic (BMP) 11/13/2008 Sodium 136 mmol/L 135-144 51 Potassium 4.4 mmol/L 3.6-5.2 51 Chloride 105 mmol/L 97-110 51 Carbon Dioxide 25 mmol/L 23-33 51 Glucose 97 mg/dL 70-105 51 BUN 11 mg/dL 6-22 51 Creatinine 0.6 mg/dL 0.5-1.3 51 BUN/CR 18 Ratio 12.0-20.0 51 Anion Gap 10 mmol/L 8-16 51 Calcium 9.3 mg/dL 8.6-10.2 51 GFR Calculation > 60 mL/min 51, 52 GFR For > 60 mL/min 51, 53 Laboratory test finding 08/05/2004 TSH 5.60 uIU/ml 0.50-6.00 Free T4 0.90 ng/dL 0.75-1.80 Lipid Panel 07/24/2004 Cholesterol 169 mg/dL 50-199 Triglycerides 129 mg/dL 30-200 HDL 38 mg/dL 35-85 Chol/HDL Ratio 4.5 Ratio VLDL 26 mg/dL LDL (Calc) 105 mg/dL 20-129 CBC 07/24/2004 WBC 8.9 K/ul 4.1-10.9 RBC 4.25 M/ul 4.20-6.30 Hemoglobin 13.6 GM/dl 12.5-15.0 Hematocrit 39.8 % 37.0-51.0 MCV 93.7 FL 80.0-97.0 MCH 32.1 pg High 26.0-32.0 MCHC 34.3 g/dL 31.0-36.0 RDW 14.8 % High 11.5-14.5 Platelet Count 214 K/ul 140-440 Neutrophils 58.2 % 50-70 Lymphocytes 28.7 % 20-44 Monocytes 7.8 % 2-9 Eosinophil 4.4 % High 0-4 Basophil 0.9 % 0-2 Absolute Neutrophils 5.1 K/ul 2.05-7.63 Absolute Lymphocytes 2.6 K/ul 0.8-4.8 Absolute Monocytes 0.7 K/ul 0.1-1.0 Absolute Eosinophils 0.4 K/ul 0.1-0.5 Absolute Basophils 0.1 K/ul 0.1-0.3 Basic (BMP) 07/24/2004 Sodium 137 mmol/L 135-145 Potassium 4.2 mmol/L 3.4-5.3 Chloride 105 mmol/L 98-111 Carbon Dioxide 25 mmol/L 22-33 Glucose 83 mg/dL 70-105 BUN 8 mg/dL 6-26 Creatinine 0.8 mg/dL 0.5-1.5 BUN/CR 10 Ratio Low 12.0-20.0 Anion Gap 11 mmol/L 10-20 Calcium 9.0 mg/dL 8.6-10.3 1 to be done 1 week prior to Oct 2017 OV 2 Per NCEP ATP III Guidelines: Results lower than 40 mg/dL are suggestive of increased risk for coronary artery disease. Results > or=to 60 mg/dL are considered a negative risk factor. 3 Per NCEP ATP III Guidelines: Normal Population <130 Patients with medical conditions: CHD/DM Optimal: <100 Borderline high: 130-159 High: 160-189 Very high: >189 4 Updated reference range on new analyzer 5 Updated reference range on new analyzer 6 Concerning GFR Guidelines: Normal function or mild renal disease, if clinically at risk: >/=60 mL/min Moderately decreased: 30-59 Severely decreased: 15-29 Renal failure: <15 Glomerular Filtration Rate (GFR) is estimated based on the MDRD equation, which assumes a steady state for creatinine as recommended by the National Kidney Disease Education Program in conjunction with the National Institutes of Health and the National Kidney Foundation. Clinical conditions in which it may be necessary to measure GFR by using clearance methods include extremes of age and body size, severe malnutrition or obesity, diseases of skeletal muscle, paraplegia or quadriplegia, vegetarian diet, rapidly changing kidney function, and calculation of the dose of potentially toxic drugs that are excreted by the kidneys. 7 Concerning GFR Guidelines for Americans: Normal function or mild renal disease, if clinically at risk: >/=60 mL/min Moderately decreased: 30-59 Severely decreased: 15-29 Renal failure: <15 8 Updated reference range on new analyzer 9 GAVE FIT CARD AND DIRECTIONS TO PT AT LAB APPT -- 04/26/17 ZS to be done April 2017 1 week prior to OV 10 Per NCEP ATP III Guidelines: Results lower than 40 mg/dL are suggestive of increased risk for coronary artery disease. Results > or=to 60 mg/dL are considered a negative risk factor. 11 Per NCEP ATP III Guidelines: Normal Population <130 Patients with medical conditions: CHD/DM Optimal: <100 Borderline high: 130-159 High: 160-189 Very high: >189 12 to be done April 2017 1 week prior to OV 13 Updated reference range on new analyzer 14 Updated reference range on new analyzer 15 Concerning GFR Guidelines: Normal function or mild renal disease, if clinically at risk: >/=60 mL/min Moderately decreased: 30-59 Severely decreased: 15-29 Renal failure: <15 Glomerular Filtration Rate (GFR) is estimated based on the MDRD equation, which assumes a steady state for creatinine as recommended by the National Kidney Disease Education Program in conjunction with the National Institutes of Health and the National Kidney Foundation. Clinical conditions in which it may be necessary to measure GFR by using clearance methods include extremes of age and body size, severe malnutrition or obesity, diseases of skeletal muscle, paraplegia or quadriplegia, vegetarian diet, rapidly changing kidney function, and calculation of the dose of potentially toxic drugs that are excreted by the kidneys. 16 Concerning GFR Guidelines for Americans: Normal function or mild renal disease, if clinically at risk: >/=60 mL/min Moderately decreased: 30-59 Severely decreased: 15-29 Renal failure: <15 17 Updated reference range on new analyzer 18 to be done 1 week prior to 10/2016 OV 19 Per NCEP ATP III Guidelines: Results lower than 40 mg/dL are suggestive of increased risk for coronary artery disease. Results > or=to 60 mg/dL are considered a negative risk factor. 20 Per NCEP ATP III Guidelines: Normal Population <130 Patients with medical conditions: CHD/DM Optimal: <100 Borderline high: 130-159 High: 160-189 Very high: >189 21 Concerning GFR Guidelines: Normal function or mild renal disease, if clinically at risk: >/=60 mL/min Moderately decreased: 30-59 Severely decreased: 15-29 Renal failure: <15 Glomerular Filtration Rate (GFR) is estimated based on the MDRD equation, which assumes a steady state for creatinine as recommended by the National Kidney Disease Education Program in conjunction with the National Institutes of Health and the National Kidney Foundation. Clinical conditions in which it may be necessary to measure GFR by using clearance methods include extremes of age and body size, severe malnutrition or obesity, diseases of skeletal muscle, paraplegia or quadriplegia, vegetarian diet, rapidly changing kidney function, and calculation of the dose of potentially toxic drugs that are excreted by the kidneys. 22 Concerning GFR Guidelines for Americans: Normal function or mild renal disease, if clinically at risk: >/=60 mL/min Moderately decreased: 30-59 Severely decreased: 15-29 Renal failure: <15 23 to be done on day of visit in March 2016 24 Per NCEP ATP III Guidelines: Results lower than 40 mg/dL are suggestive of increased risk for coronary artery disease. Results > or=to 60 mg/dL are considered a negative risk factor. 25 Per NCEP ATP III Guidelines: Normal Population <130 Patients with medical conditions: CHD/DM Optimal: <100 Borderline high: 130-159 High: 160-189 Very high: >189 26 Concerning GFR Guidelines: Normal function or mild renal disease, if clinically at risk: >/=60 mL/min Moderately decreased: 30-59 Severely decreased: 15-29 Renal failure: <15 Glomerular Filtration Rate (GFR) is estimated based on the MDRD equation, which assumes a steady state for creatinine as recommended by the National Kidney Disease Education Program in conjunction with the National Institutes of Health and the National Kidney Foundation. Clinical conditions in which it may be necessary to measure GFR by using clearance methods include extremes of age and body size, severe malnutrition or obesity, diseases of skeletal muscle, paraplegia or quadriplegia, vegetarian diet, rapidly changing kidney function, and calculation of the dose of potentially toxic drugs that are excreted by the kidneys. 27 Concerning GFR Guidelines for Americans: Normal function or mild renal disease, if clinically at risk: >/=60 mL/min Moderately decreased: 30-59 Severely decreased: 15-29 Renal failure: <15 28 to be done 09/2015, 1 week prior to OV 29 Concerning GFR Guidelines: Normal function or mild renal disease, if clinically at risk: >/=60 mL/min Moderately decreased: 30-59 Severely decreased: 15-29 Renal failure: <15 Glomerular Filtration Rate (GFR) is estimated based on the MDRD equation, which assumes a steady state for creatinine as recommended by the National Kidney Disease Education Program in conjunction with the National Institutes of Health and the National Kidney Foundation. Clinical conditions in which it may be necessary to measure GFR by using clearance methods include extremes of age and body size, severe malnutrition or obesity, diseases of skeletal muscle, paraplegia or quadriplegia, vegetarian diet, rapidly changing kidney function, and calculation of the dose of potentially toxic drugs that are excreted by the kidneys. 30 Concerning GFR Guidelines for Americans: Normal function or mild renal disease, if clinically at risk: >/=60 mL/min Moderately decreased: 30-59 Severely decreased: 15-29 Renal failure: <15 31 Per NCEP ATP III Guidelines: Results lower than 40 mg/dL are suggestive of increased risk for coronary artery disease. Results > or=to 60 mg/dL are considered a negative risk factor. 32 Per NCEP ATP III Guidelines: Normal Population <130 Patients with medical conditions: CHD/DM Optimal: <100 Borderline high: 130-159 High: 160-189 Very high: >189 33 ORTHOPEDIC MEDICINE [phone] CC: VIVEK TAYLOR MD 34 Unless otherwise specified, testing performed by [facility] [address] [place] [id number] 35 Is patient on anticoagulants? Coumadin 36 THERAPEUTIC INR RANGE: 2.0 - 3.0 DVT, Pulmonary embolus, prophylaxis against venous thrombosis or systemic embolization in high risk patients. 2.5 - 3.5 Mechanical heart valves 37 Is patient on anticoagulants? Coumadin QUERY: Anticoagulant Therapy? QUERY: Date of Last Dose: QUERY: Time of Last Dose: 38 FEW REACTIVE LYMPHOCYTES NOTED 39 Note: Persistent reduction for 3 months or more in an eGFR <60 mL/min/1.73 m2 defines CKD. Patients with eGFR values >/=60 mL/min/1.73 m2 may also have CKD if evidence of persistent proteinuria is present. The original MDRD equation for estimated GFR is not valid for patients less than 18 years of age. Additional information may be found at www.kdoqi.org. [address] [employer] [address] [address] Amplified Molecular High Risk HPV Test Accession Number [id number] Specimen(s) Received A: High Risk HPV Thin Prep Endocervical Pap Smear - One Vial Other Case Numbers: [id number] Diagnosis Results Unable to perform HPV Assay on this specimen due to: Inadequate volume in specimen transport vial (less than 1 ml). Reported: 04/18/2015 14:54 Electronically Signed Out By Nadia Zamudio ckl 41 [employer] [facility]. [address] [place] [id number] GYNECOLOGIC CYTOLOGY REPORT Accession Number: [id number] Source of Specimen(s): A: Thin Prep Endocervical Pap Smear - One Vial Clinical Diagnosis and History: Date of Last Menstrual Period: None Provided Menstrual History: Post-menopausal Other Clinical Conditions: Last Pap Smear: normal HPV ASSAY REQUESTED Specimen Adequacy Satisfactory for evaluation Presence of endocervical/transformation zone component General Categorization Negative for intraepithelial lesion or malignancy Interpretation NEGATIVE FOR INTRAEPITHELIAL LESION OR MALIGNANCY Hyperkeratosis Recommendations HPV testing will be performed and a separate report will be issued. Reported: 04/18/2015 Electronically Signed Out By Justin Larios M.D. Fertilizer Loader: Digna BARBOSA(ASCP) [facility] jbs Unless otherwise specified, testing performed by [facility] [employer] [address] [address] 42 Concerning GFR Guidelines: Normal function or mild renal disease, if clinically at risk: >/=60 mL/min Moderately decreased: 30-59 Severely decreased: 15-29 Renal failure: <15 Glomerular Filtration Rate (GFR) is estimated based on the MDRD equation, which assumes a steady state for creatinine as recommended by the National Kidney Disease Education Program in conjunction with the National Institutes of Health and the National Kidney Foundation. Clinical conditions in which it may be necessary to measure GFR by using clearance methods include extremes of age and body size, severe malnutrition or obesity, diseases of skeletal muscle, paraplegia or quadriplegia, vegetarian diet, rapidly changing kidney function, and calculation of the dose of potentially toxic drugs that are excreted by the kidneys. 43 Concerning GFR Guidelines for Americans: Normal function or mild renal disease, if clinically at risk: >/=60 mL/min Moderately decreased: 30-59 Severely decreased: 15-29 Renal failure: <15 44 Per NCEP ATP III Guidelines: Results lower than 40 mg/dL are suggestive of increased risk for coronary artery disease. Results > or=to 60 mg/dL are considered a negative risk factor. 45 Per NCEP ATP III Guidelines: Normal Population <130 Patients with medical conditions: CHD/DM Optimal: <100 Borderline high: 130-159 High: 160-189 Very high: >189 46 PRINCE=CONFIRMED 47 NO GROWTH: FINAL REPORT 48 Note: Persistent reduction for 3 months or more in an eGFR <60 mL/min/ 1.73 m2 defines CKD. Patients with eGFR values >/=60 mL/min/1.73 m2 may also have CKD if evidence of persistent proteinuria is present. The original MDRD equation for estimated GFR is not valid for patients less than 18 years of age. Additional information may be found at www.kdoqi.org. 49 FIRST MORNING SPECIMENS GENERALLY CONTAIN THE HIGHEST CONCENTRATION OF HCG AND ARE RECOMMENDED FOR EARLY DETECTION OF . 50 02/23/13 LAB.JAM1 Deleted by Reflex Group [facility] 51 This sample is drawn by:MICHAEL 52 Concerning GFR GUIDELINES: Normal Function or Mild Renal Disease, if clinically at risk: >/=60mL/min Moderately decreased: 30-59 Severely decreased: 15-29 Renal Failure: <15 Glomerular Filtration Rate (GFR) is estimated based on the MDRD equation, which assumes a steady state for creatinine as recommended by the National Kidney Disease Education Program in conjunction with the National Institutes of Health and the National Kidney Foundation. Clinical conditions in which it may be necessary to measure GFR by using clearance methods include extremes of age and body size, severe malnutrition or obesity, diseases of skeletal muscle, paraplegia or quadriplegia, vegetarian diet, rapidly changing kidney function, and calculation of the dose of potentially toxic drugs that are excreted by the kidneys. 53 Concerning GFR GUIDELINES: Normal Function or Mild Renal Disease, if clinically at risk: >/=60mL/min Moderately decreased: 30-59 Severely decreased: 15-29 Renal Failure: <15 Procedures Date CPT Code Description Status Comment 01/17/2018 41482 Electrocardiogram Complete Completed 06/14/2017 Mammogram Completed Document: 04/16/15 - Mammogram Result Document: 05/22/16 - Digital Mammography Screening Document: 06/03/17 - Digital Mammography Screening Document: 06/14/17 - Digital Mammography DX [place] 04/16/2015 Mammogram Completed 11/25/2013 69619 Mammography Unilateral Completed 04/18/2013 24633 Electrocardiogram Complete Completed 03/07/2008 96163 Electrocardiogram Complete Completed Encounters Type Date Location Provider CPT E/M Dx Office Visit 11/02/2017 10:00[place] [address] E03.9 I10 E78.2 E55.9 K21.9 M19.91 G47.00 M54.5 Z11.59 Z68.37 Office Visit 05/03/2017 8:30[place] [address] Z00.00 I10 E78.2 M19.91 M79.602 E03.9 E55.9 G47.00 K21.9 M54.5 Z12.11 Z12.31 Z68.42 Office Visit 10/28/2016 3:00[place] [address] I10 E78.2 E03.9 E55.9 M19.91 K21.9 M54.5 G47.00 Z12.11 Office Visit 04/24/2016 9:00[place] [address] Z00.00 Z68.41 E03.9 E78.2 I10 M19.91 K21.9 M54.5 G47.00 E55.9 Z12.11 Z12.31 Office Visit 10/15/2015 8:30[place] [address] I10 M19.91 E78.2 E03.9 K21.9 M54.5 G47.00 E55.9 Z68.41 Z12.11 Office Visit 06/07/2015 9:45a [facility] Marcella Navarrete, AUTOC[employer]TER [address] 465.9 708.9 Office Visit 04/16/2015 9:00a [facility] Marcella Navarrete, AUTOCUTTER [address] V72.31 401.1 272.2 244.9 278.00 715.10 530.81 724.2 780.52 268.9 627.2 V76.12 V76.51 Office Visit 01/22/2015 8:00a [facility] KellieconnieMarcella bro, AUTOCUTTER [address] 401.1 278.00 244.9 715.10 272.2 530.81 268.9 724.2 780.52 V76.12 Office Visit 06/10/2009 1:15p [place] [address] V72.83 236.3 Office Visit 11/13/2008 9:00[place] [address] V72.83 626.8 Office Visit 03/07/2008 11:00[place] [address]/ 25 V72.83 719.47 244.9 Office Visit 03/03/2007 8:30[place] [address] 611.72 722.10 388.70 Office Visit 02/10/2007 11:15[place] [address] 724.2 Office Visit 08/05/2004 9:50a [place] [address] 780.79 626.8 244.9 401.1 Office Visit 07/24/2004 9:50[place] [address] 780.79 401.1 626.9 Office Visit 08/13/2003 11:10[place] [address] V70.0 V72.3 Office Visit 06/08/2003 8:30[place] [address] 401.1 V72.84 726.90 Office Visit 03/07/2003 4:30p [place] [address] 401.1 278.00 466.0 Office Visit 09/07/2002 4:10p [place] [address] 401.1 278.00 530.11 Office Visit 02/16/2002 3:30[place] [address] 401.1 244.9 726.71 Office Visit 07/21/2001 12:00[place] [address] Plan of Care Future Appointment(s):05/02/2018 7:40 am - Schedule, Laboratory at [facility]2017 3:00 pm - Marcella Navarrete, [employer] at [facility]01/17/2018 - Marcella Navarrete NPZ01.818 Encounter for other preprocedural examinationComments:Will check BMP today.Continue with all meds up until surgery other than aspirin.Take Lisinopril, Venlafaxine and Levothyroxine on morning of surgery with sip of water.Advised no ASA for 7 days prior to surgery or other NSAIDs 3-4 days prior to surgery.Will notify of lab results.EKG ok.M17.12 Unilateral primary osteoarthritis, LEFT kneeI10 Essential (primary) hypertensionComments:Continue Lisinopril 10mg daily.Advised following BPs at home, bring readings to next scheduled appointment.Move appt. up if readings persisently high.Continue to avoid excess sodium. Continue to attempt to increase daily exercise. Will recheck labs prior to next OV.E78.2 Mixed hyperlipidemiaComments:Continue Simvastatin.Continue to limit fat and cholesterol in diet.E03.9 Hypothyroidism, unspecifiedComments:Continue current dose of Levothyroxine Will continue to follow TSH [id number] Gastro-esophageal reflux disease without tdbnaqpbroaJ40.91 Primary osteoarthritis, unspecified siteComments:Follow through with plan for surgery with Dr. TaylorG47.00 Insomnia, qdugmozypkhU83.9 Vitamin D deficiency, ywukdmabrahC86.5 Low back painZ11.59 Encounter for screening for other viral diseasesComments:Discussed potential benefits of Hep C screen.Agrees to screening with next labs.Z68.38 Body mass index (BMI) 38.0- 38.9, adultComments:Healthy well balanced diet with portion control and limited concentrated sweets.Encouraged return toincreased exercise following surgery
[2018-02-08] MEDS ORDERED: ceFAZolin 2 GM PREMIX (*) 2 GM/50 ML BAG IVPB ONE (08:14)
[2018-02-08] MEDS ORDERED: Sodium Citrate/Citric Acid* 15 ML UDC ONE (08:14)
[2018-02-08] MEDS ORDERED: ROPIVACAINE 5 MG/ML 30 ML BTL (0.5%) ONE (08:59)
[2018-02-08] MEDS ORDERED: fentaNYL* 50 MCG/ML 2 ML VIAL (100 MCG VIAL) ONE ×2 (08:59→13:45)
[2018-02-08] MEDS ORDERED: Midazolam* 1 MG/ML 2 ML VIAL (2 MG) ONE ×3 (08:59→11:44)
[2018-02-08] MEDS ORDERED: Morphine PF AMP (0.5MG/ML)* 5 MG/10 ML AMP ONE (09:37)
[2018-02-08] MEDS ORDERED: Propofol* 10 MG/ML 20 ML BTL IV PUSH ONE ×3 (09:37→12:00)
[2018-02-08] MEDS ORDERED: Naloxone* 0.4 MG/ML 1 ML VIAL IV PRN ×2 (09:49→11:13)
[2018-02-08] MEDS ORDERED: fentaNYL* 50 MCG/ML 2 ML VIAL (100 MCG VIAL) IV PRN (09:49)
[2018-02-08] MEDS ORDERED: Bupivacaine 0.5% SDV PF* 10-30ML VIAL ONE (10:51)
[2018-02-08] MEDS ORDERED: Magnesium Hydroxide LIQ* 30 ML UDC PO PRN (11:02)
[2018-02-08] MEDS ORDERED: Polyethylene Glycol 3350* 17 GM PACKET PO PRN (11:02)
[2018-02-08] MEDS ORDERED: Cyclobenzaprine TAB* 10 MG PO PRN (11:02)
[2018-02-08] MEDS ORDERED: diPHENhydraMINE IV* 50 MG/ML 1 ml VIAL (BENADRYL) IV PRN (11:02)
[2018-02-08] MEDS ORDERED: Acetaminophen TAB* 325 MG PO PRN (11:02)
[2018-02-08] MEDS ORDERED: Bisacodyl SUPP* 10 MG SUPP PR PRN (11:02)
[2018-02-08] MEDS ORDERED: Gabapentin CAP(*) 300 MG PO PRN (11:06)
[2018-02-08] MEDS ORDERED: Ondansetron INJ* 2 MG/ML VIAL IV PRN (11:13)
[2018-02-08] MEDS ORDERED: Morphine INJ* 2 MG/ML 1 ML CARPUJECT IV PRN (13:42)
[2018-02-08] MEDS ORDERED: Albuterol 2.5 MG/3 ML NEB.SOL* (0.083%) INH PRN (13:47)
--- NOTE | 2018-02-08 14:00 | RAD ---
INDICATION: Left knee arthroplasty COMPARISON: October 27, 2017 TECHNIQUE: AP and lateral views were obtained. FINDINGS: There is left knee arthroplasty. Both femoral and tibial components appear well seated. There is a cooling jacket in place. IMPRESSION: LEFT KNEE ARTHROPLASTY.
[2018-02-08] MEDS: oxyCODONE/Acetamin 5/325 MG* TAB PO PRN ×3 (15:09→21:02)
--- NOTE | 2018-02-08 16:49 | CONS ---
CC: Dr. Long, [place]; Dr. Taylor * CONSULTATION REPORT: DATE OF CONSULT: 02/08/18 PRIMARY CARE PROVIDER: Dr. Long, from [place]. ATTENDING PHYSICIAN WHILE IN THE HOSPITAL: Liane Mock DO (report dictated by Anthony Haider NP). REQUESTING PHYSICIAN IN CONSULT: Dr. Taylor. REASON FOR MEDICAL CONSULTATION: Evaluation and management of comorbid medical problems. HISTORY OF PRESENT ILLNESS: Ms. Torres is a 57-year-old female patient, she carries a history of hypertension, hyperlipidemia. She also carries a history of depression, arthritis, chronic back pain, nephrolithiasis, GERD and mediastinal mass that was benign. She comes into the orthopedic services today because of persistent left knee pain, it was failing conservative therapy. She received consult and evaluation from Dr. Taylor. It was felt that she would benefit from a total knee replacement which she underwent today. The patient was evaluated in the PACU. She states she is feeling well. She denies having any chest pain or shortness of breath. She states she does not feel nauseated. She states her stomach feels well. She denies having any headache. Denies feeling lightheaded. She denies feeling like she is going to faint or pass out. Denies having any dizziness. She says that her pain in her knee is well controlled and she has sensation into the feet now and she is able to wiggle her feet. She says that of note, she did receive a spinal for anesthesia, but because of her medical complexity, we were asked to evaluate in consult. PAST MEDICAL HISTORY: Significant for: 1. Hypertension. 2. Hyperlipidemia. 3. Hypothyroidism. 4. Depression. 5. Arthritis. 6. Chronic pain. 7. Nephrolithiasis. 8. GERD. 9. Mediastinal mass. PAST SURGICAL HISTORY: 1. The patient has had carpal tunnel repair. 2. Achilles tendon repair. 3. x2. 4. Lithotripsy. 5. She has just had a left total knee replacement done today. HOME MEDICATIONS: Include according to the preop list: 1. Effexor 75 mg p.o. daily. 2. Tramadol 200 mg p.o. daily. 3. Zocor 10 mg at bedtime. 4. Lisinopril 10 mg daily. 5. Synthroid 75 mcg daily. 6. [place] 1 tablet p.o. 4 times a day as needed. 7. Gabapentin 300 mg p.o. t.i.d. as needed. 8. Voltaren gel 1 application topically 4 times a day. 9. Vitamin D 4000 units p.o. daily. ALLERGIES TO MEDICATIONS: Include no known drug allergies. FAMILY HISTORY: Mother had a history of CVA. Father had a history of cancer and [place]. SOCIAL HISTORY: She is a former smoker, she quit in 2012. Does not drink alcohol. Surrogate decision maker is her . REVIEW OF SYSTEMS: There is no rhinorrhea. There is no sore throat or thyroid enlargement. Lenny having any chest pain. There is no orthopnea, there is no nocturnal dyspnea. She denies having any abdominal pain. There is no nausea, no vomiting. No dysuria, no frequency. There is no seizure. There is no loss of consciousness, no pruritus, and no skin ulcerations. Review of 14 systems completed, all others negative. PHYSICAL EXAM: Vital Signs: Blood pressure 109/76, pulse 68, respirations 18, O2 sat 99%, temperature 97.2. General: At this time, Ms. Torres is a 57-year- old female patient. She is sitting in the PACU bed. She does not appear to be in any acute distress. She appears to be well nourished, well developed. HEENT : Head is atraumatic, normocephalic. Eyes: EOMs are intact. Sclerae anicteric , not pale. Neck: Supple. Throat: Oral mucosa appears to be dry. No oropharyngeal erythema. Heart: Sounds S1 and S2. Regular rate and rhythm. No murmurs, rubs or gallops. Lungs: Clear to auscultation bilaterally. No wheezes , rales or rhonchi. Abdomen: Soft, it was flat, nontender. Bowel sounds were present, but hypoactive. Extremities: Pulses were 2+ throughout. Patient is able to move the upper extremities with 5/5 strength. She has decreased range of motion to the left lower extremity as this is the operative leg, but distal CSM checks are intact. Neurologically, she is awake, she is alert, she is oriented x3. Tongue midline. Agricultural Researcher were equal and no gross focal deficits. Skin: Intact with the exception to the lower extremity, on the left knee, there is an incision covered with an Abram dressing and Hemovac drain which is intact. Otherwise, skin is intact. DIAGNOSTIC STUDIES/LAB DATA: Preop WBC 10.0, RBC of 4.90, hemoglobin 15.1, hematocrit 47, platelet count 239,000. The INR was 0.92. Urine preop was negative. Sodium 140, potassium 4.9, chloride 102, bicarb 28, glucose 93, BUN 18, creatinine 0.7. She had a preop EKG showing a normal sinus rhythm, rate of 78, no ST elevations or T-wave inversions. There is also a preop chest x-ray showing lungs clear, elevation of the right hemidiaphragm. Old medical records reviewed. ASSESSMENT AND PLAN: Mrs. Torres is a 57-year-old female patient coming into orthopedic services today for an elective left total knee. We were asked to evaluate in consult. Our recommendations at this point are: 1. Status post left total knee. I will defer the management to Dr. Taylor and her team. 2. Hypertension. She did receive spinal anesthesia. Blood pressure right now is in the low 100s systolic. I would hold the lisinopril, restart when able. 3. Hyperlipidemia. Continue statin therapy. 4. Hypothyroidism. Continue her Synthroid. 5. Arthritis. Continue with her current medical regimen. Follow with Dr. Taylor and with her PCP. 6. Chronic pain. Continue her current medical regimen. 7. History of nephrolithiasis, not an active issue. 8. Gastroesophageal reflux disease. Continue meds as prescribed. 9. History of mediastinal mass. Continue to follow up with her PCP, not an active issue. 10. DVT prophylaxis. Defer to the primary team. 11. Depression. Continue with her Effexor. 12. Code status. Full code. 13. Fluid, electrolytes and nutrition. I would recommend a heart healthy diet. TIME SPENT: Time spent on the consult was 60 minutes, greater than half the time was spent face to face with the patient obtaining my history and physical, the other half of the time was spent going over the plan of care with the patient and implementing the plan of care. I did discuss the plan of care with my attending, Dr. Mock, and she is in agreement. ANTHONY HAIDER, SOCIAL WORK ADMINISTRATOR [id number]/[facility] #: [id number] TIM
[2018-02-08] MEDS ORDERED: Warfarin TAB(*) 6 MG PO ONE (17:00)
[2018-02-08] MEDS: ceFAZolin 1 GM in Dextrose (*) 1 GM/50 ML BAG IVPB SCH (17:33)
[2018-02-08] MEDS: Atorvastatin* 10 MG TAB PO SCH (17:33)
[2018-02-08] MEDS: Docusate CAP* 100 MG PO SCH (20:48)
[2018-02-08] MEDS: Magnesium Hydroxide LIQ* 30 ML UDC PO SCH (20:48)
[2018-02-09] MEDS: oxyCODONE/Acetamin 5/325 MG* TAB PO PRN ×5 (00:24→21:21)
[2018-02-09] MEDS ORDERED: oxyCODONE/Acetamin 5/325 MG* TAB PO PRN (02:18)
[2018-02-09] MEDS ORDERED: Ondansetron TAB* 4 MG PO PRN (02:18)
[2018-02-09] MEDS ORDERED: Ondansetron INJ* 2 MG/ML VIAL IV PRN (02:18)
[2018-02-09] MEDS ORDERED: Morphine INJ* 2 MG/ML 1 ML CARPUJECT IV PRN (02:18)
[2018-02-09] MEDS: ceFAZolin 1 GM in Dextrose (*) 1 GM/50 ML BAG IVPB SCH ×2 (02:23→10:08)
[2018-02-09 05:45] LABS: Hematocrit 36 % (35-47); Hemoglobin 12.2 g/dl (12.0-16.0); Platelet Count 170 10^3/ul (150-450)
[2018-02-09 05:54] LABS: INR 1.07 (0.77-1.02)
[2018-02-09 06:05] LABS: EGFR Non-African American 95.6 (>60)
[2018-02-09] MEDS: Levothyroxine TAB* 75 MCG TAB PO SCH (06:10)
[2018-02-09] MEDS: oxyCODONE TAB* 5 MG TAB PO PRN ×3 (07:21→19:07)
[2018-02-09] MEDS: Docusate CAP* 100 MG PO SCH ×2 (08:45→21:21)
[2018-02-09] MEDS: Magnesium Hydroxide LIQ* 30 ML UDC PO SCH ×2 (08:45→21:20)
[2018-02-09] MEDS: Venlafaxine EXT RELEASE CAP* 75 MG PO SCH (08:45)
[2018-02-09] MEDS: Lisinopril TAB* 10 MG PO SCH (08:45)
[2018-02-09] MEDS ORDERED: Lisinopril TAB* 10 MG PO SCH (09:00)
[2018-02-09] MEDS ORDERED: Enoxaparin(*) 30 MG/0.3 ML SYR SUBCUT SCH (12:00)
--- NOTE | 2018-02-09 12:53 | OP ---
DATE OF OPERATION: 02/08/18 - ROOM #348 DATE OF : 60 SURGEON: Parisa Taylor MD. SETTER MACHINE: DE Feldman. Carmen Moody did help throughout the procedure with preparation of the leg, wound retraction, manipulation of the knee and wound closure. ANESTHESIOLOGIST: Dr. Mejía. ANESTHESIA: Spinal. PRE-OP DIAGNOSIS: Severe endstage degenerative osteoarthritis of the left knee joint. POST-OP DIAGNOSIS: Severe endstage degenerative osteoarthritis of the left knee joint. OPERATIVE PROCEDURE: Left total knee arthroplasty. HARDWARE USED: This is cemented [employer] total knee arthroplasty hardware. Two packages of simplex bone cement. For the femur, a narrow size 6 left Legion Oxinium femoral component, posterior stabilized. For the tibia, a size 6 left tibial base plate Melina II. For the insert, a 9 mm posterior stabilized articular insert, size 5/6. For the patella, a 35 mm 3-peg all poly patella with 7.5 thickness. TOURNIQUET TIME: 47 minutes. COMPLICATIONS: None. ESTIMATED BLOOD LOSS: 300 cc. SPECIMENS: Bone and cartilage from the left knee joint sent to Pathology. BRIEF HISTORY/INDICATIONS: Ms. Torres is a 57-year-old female with years of increasingly severe knee pain, increasingly severe left knee pain. She failed conservative treatment with anti-inflammatories, pain medications and intraarticular injection, and physical therapy. Radiographs showed bone-on- bone arthritis. Due to continued pain and decreased quality of life, the patient has elected to undergo left total knee arthroplasty. Informed consent was obtained from the patient. She understood the risks of surgery included, but were not limited to, bleeding, infection, damage to nearby structures, continued pain, need for further surgery, intraoperative fracture, nerve palsy, hardware failure or loosening, knee stiffness, loss of motion, stroke, heart attack, blood clot, and . She wished to proceed. INTRAOPERATIVE FINDINGS: Intraoperatively, the patient was noted to have extensive loss of cartilage in all three compartments with significant osteophyte formation as well. DESCRIPTION OF PROCEDURE: Ms. Torres was identified in the preanesthesia unit. Her left lower extremity was marked as the correct operative side. Informed consent was signed and placed in the chart. She was taken to the operating room and placed under spinal anesthesia. A Vines catheter was placed. Tourniquet was placed on the left thigh. Left lower extremity was prepped and draped in the usual sterile fashion. Preop time-out was made to correctly identify the patient, side, and site. Appropriate perioperative antibiotics were given within 1 hour of incision. Tourniquet was inflated and total tourniquet time for this procedure was 47 minutes. A midline incision was made with a 10 blade and carried down to the extensor mechanism. A new 10 blade was used to make a standard medial parapatellar arthrotomy. The patella was subluxed laterally. Electrocautery was used to subperiosteally elevate soft tissue off the superomedial tibia to the mid sagittal plane. The knee was flexed up. The anterior horn of the lateral meniscus and ACL were sharply released. A drill was used to enter the distal femur. Intramedullary distal femoral cutting guide was pinned on the distal femur. Oscillating saw was used to make the distal femoral cut. The external rotation guide was pinned on the distal femur and the distal femur was sized to a size 6. A size 6 multi-cutting jig was pinned on the distal femur. Oscillating saw was used to make the appropriate 4 chamfer cuts. The PCL was completely released. The tibia was subluxed anteriorly. Extramedullary tibial cutting guide was pinned down the proximal tibia. The oscillating saw was used to make proximal tibial cut perpendicular to the mechanical axis of the tibia. The bone was carefully removed. The knee was brought out into full extension. A spacer block had good fit. There was good medial and lateral ligamentous balancing. Flexion and extension gaps were well balanced. The knee was flexed up. The lamina spreader box operator was placed both medially and laterally. Any remaining meniscus was removed using electrocautery. Curved osteotome was used to remove any posterior osteophytes. Tibial tray and drop paresh were placed and once again confirmed a satisfactory proximal tibial cut. A left size 6 narrow femoral component trial was chosen. This was impacted onto the distal femur without difficulty. The femur had a good fit. The box for the posterior stabilized implant was prepared using a reamer and box cut osteotome. A size 6 tibial tray trial with a 9-mm insert trial was placed, and the knee was taken through range of motion. The knee had full extension to 130 degrees of flexion. There was satisfactory patellofemoral tracking. The patella was everted. 7 mm of patellar bone and cartilage was carefully removed using an oscillating saw. The patella was sized to a size 35. The 3 peg holes were drilled through the size 35 guide. A 35 trial patella was placed and the knee was taken through range of motion. There was satisfactory patellofemoral tracking. All trials were carefully removed. The tibia was subluxed anteriorly and sized to a size 6. Proximal tibia was prepared using a size 6 keel punch. All bony cut surfaces were copiously irrigated with sterile saline and dried. Final implants were cemented into place starting with the tibia followed by the femur and last the patella. A 9-mm insert trial was placed and the knee was brought out into full extension. The tourniquet was deflated. The knee was copiously irrigated with sterile saline. Electrocautery was used to obtain meticulous hemostasis. Once the cement had fully cured, the insert trial was removed. Any excess cement was removed from around the capsule and hardware. Final insert chosen was a 9-mm posterior stabilized articular insert, size 5/6. This was locked into position on the tibial tray. Stability of the insert was checked and rechecked and noted to be stable. The extensor mechanism was closed over a median Hemovac drain using interrupted #1 Vicryls. The rest of the incision was closed in a layered fashion using 0 and 2-0 Vicryls. The skin was closed using running nylon suture. Sterile Xeroform, 4x4s, and Webril were used to cover the incision. Abram wrap and cold wrap were placed over this. The patient's anesthesia was reversed without difficulty. She was taken to the PACU in stable condition. Intended weightbearing will be weightbearing as tolerated. Intended DVT prophylaxis will be Coumadin with a Lovenox bridge. [id number]/[facility] #: [id number] ITM
--- NOTE | 2018-02-09 13:52 | PN ---
Subjective Date of Service: 02/09/18 Interval History: Patient states her pain is 3/10 and 6/10 with movement and before pain medication. Patient states that she has urinated, has not had a BM and is passing flatus. Patient denies F/C, N/V, abdominal pain, diarrhea, constipation , or other pain. Patient worked well with PT today. Patient has a very flat affect during questioning. Family History: Unchanged from Admission Social History: Unchanged from Admission Past Medical History: Unchanged from Admission Objective Active Medications: Acetaminophen (Tylenol Tab*) 650 mg PO Q4H PRN PRN Reason: PAIN OR TEMPERATURE Albuterol (Ventolin 2.5 Mg/3 Ml Neb.Miriam*) 2.5 mg INH Q2H PRN PRN Reason: SOB/WHEEZING Atorvastatin Calcium (Lipitor*) 5 mg PO QPM [facility] Last Admin: 02/08/18 17:33 Dose: 5 mg Bisacodyl (Dulcolax Supp*) 10 mg MD DAILY PRN PRN Reason: constipation Cyclobenzaprine HCl (Flexeril Tab*) 10 mg PO TID PRN PRN Reason: SPASMS Diphenhydramine HCl (Benadryl Iv*) 12.5 mg IV Q6H PRN PRN Reason: PRURITIS Docusate Sodium (Colace Cap*) 100 mg PO BID [facility] Last Admin: 02/09/18 08:45 Dose: 100 mg Enoxaparin Sodium (Lovenox(*)) 30 mg SUBCUT Q24H [facility] Last Admin: 02/09/18 11:57 Dose: 30 mg Gabapentin (Neurontin Cap(*)) 300 mg PO TID PRN PRN Reason: PAIN Lactated Ringer's (Lactated Ringers 1000 Ml Bag*) 1,000 mls @ 100 mls/hr IV PER RATE [facility] Last Admin: 02/09/18 01:06 Dose: 100 mls/hr Lactulose (Lactulose*) 30 ml PO Q6H PRN PRN Reason: constipation Levothyroxine Sodium (Synthroid Tab*) 75 mcg PO DAILY@0600 [facility] Last Admin: 02/09/18 06:10 Dose: 75 mcg Lisinopril (Prinivil Tab*) 10 mg PO DAILY [facility] Last Admin: 02/09/18 08:45 Dose: 10 mg Magnesium Hydroxide (Milk Of Magnesia Liq*) 30 ml PO BID [facility] Last Admin: 02/09/18 08:45 Dose: 30 ml Magnesium Hydroxide (Milk Of Magnesia Liq*) 30 ml PO Q6H PRN PRN Reason: constipation Morphine Sulfate (Morphine Inj (Syringe)*) 2 mg IV Q2H PRN PRN Reason: PAIN Morphine Sulfate (Morphine Inj (Syringe)*) 2 mg IV Q1H PRN PRN Reason: PAIN - BREAKTHROUGH Ondansetron HCl (Zofran Inj*) 4 mg IV Q6H PRN PRN Reason: nausea Ondansetron HCl (Zofran Tab*) 4 mg PO Q6H PRN PRN Reason: NAUSEA Oxycodone HCl (Roxycodone Tab*) 10 mg PO Q4H PRN PRN Reason: SEVERE PAIN Last Admin: 02/09/18 12:40 Dose: 10 mg Oxycodone/Acetaminophen (Percocet 5/325 Tab*) 2 tab PO Q4H PRN PRN Reason: PAIN Last Admin: 02/09/18 10:00 Dose: 2 tab Oxycodone/Acetaminophen (Percocet 5/325 Tab*) 1 tab PO Q4H PRN PRN Reason: PAIN Pharmacy Profile Note (Coumadin Daily Reminder*) 1 note FOLLOW UP 1700 [facility] Last Admin: 02/08/18 17:36 Dose: 1 note Polyethylene Glycol/Electrolytes (Miralax*) 17 gm PO DAILY PRN PRN Reason: Constipation Venlafaxine HCl (Effexor Xr Cap*) 75 mg PO QAM [facility] Last Admin: 02/09/18 08:45 Dose: 75 mg Vital Signs - 8 hr 02/09/18 02/09/18 02/09/18 07:11 07:21 07:45 Temperature 98.7 F Pulse Rate 95 Respiratory 18 20 17 Rate Blood Pressure 146/73 (mmHg) O2 Sat by Pulse 97 Oximetry 02/09/18 02/09/18 02/09/18 08:00 10:00 10:01 Temperature Pulse Rate Respiratory 18 18 18 Rate Blood Pressure (mmHg) O2 Sat by Pulse 97 Oximetry 02/09/18 02/09/18 02/09/18 11:22 11:56 12:40 Temperature 98.3 F Pulse Rate 92 Respiratory 17 18 18 Rate Blood Pressure 130/63 (mmHg) O2 Sat by Pulse 92 Oximetry Oxygen Devices in Use Now: None Appearance: Patient is a 57yo female who appears stated age and is sitting in the bed in NAD. Eyes: No Scleral Icterus, PERRLA Ears/Nose/Mouth/Throat: NL Teeth, Lips, Gums, Clear Oropharnyx, Mucous Membranes Moist Neck: NL Appearance and Movements; NL JVP, Trachea Midline Respiratory: Symmetrical Chest Expansion and Respiratory Effort, Clear to Auscultation Cardiovascular: NL Sounds; No Murmurs; No JVD, RRR, No Edema Abdominal: NL Sounds; No Tenderness; No Distention, No Hepatosplenomegaly Lymphatic: No Cervical Adenopathy Extremities: No Edema, No Clubbing, Cyanosis, - - Left Knee covered in bulky dressing with cryo-pack, Skin: No Rash or Ulcers, No Nodules or Sclerosis Neurological: Alert and Oriented x 3, NL Sensation, NL Muscle Strength and Tone , - - CN II-XII intact. Result Diagrams: 02/09/18 05:21 02/09/18 05:21 Assess/Plan/Problems-Billing Assessment: Patient is a 57yo female with a PMH for HTN, HLD, Hypothyroid who is S/P a Left knee arthroplasty on 01/29 and is doing well. - Patient Problems (1) History of arthroplasty of left knee Current Visit: Yes Status: Acute Code(s): Z96.652 - PRESENCE OF LEFT ARTIFICIAL KNEE JOINT SNOMED Code(s): 506466863 Comment: Management per ortho. Pain well controlled. Working well with PT/OT. Has urinated, passing flatus, no BM. H/H stable. (2) Hypertension Current Visit: Yes Status: Acute Code(s): I10 - ESSENTIAL (PRIMARY) HYPERTENSION SNOMED Code(s): 68342180 Comment: BP well controlled, continue lisinopril. (3) Hyperlipidemia Current Visit: Yes Status: Acute Code(s): E78.5 - HYPERLIPIDEMIA, UNSPECIFIED SNOMED Code(s): 34649700 Comment: Continue Statin (4) Hypothyroid Current Visit: Yes Status: Acute Code(s): E03.9 - HYPOTHYROIDISM, UNSPECIFIED SNOMED Code(s): 61372571 Comment: Continue levothyroxine (5) Chronic pain Current Visit: Yes Status: Acute Code(s): G89.29 - OTHER CHRONIC PAIN SNOMED Code(s): 93247264 Comment: Pain well controlled with current regimen. (6) Full code status Current Visit: Yes Status: Acute Code(s): Z78.9 - OTHER SPECIFIED HEALTH STATUS SNOMED Code(s): 996296631 (7) DVT prophylaxis Current Visit: Yes Status: Acute Code(s): BVT7646 - SNOMED Code(s): 933421762 Comment: Continue Lovenox and Warfarin Status and Disposition: Disposition Per Ortho
--- NOTE | 2018-02-09 13:56 | PN ---
Progress Note - Progress Note Date of Service: 02/09/18 SOAP: Subjective: []Patient seen at bedside. Left knee pain is tolerable. No chest pain, shortness of breath, dizziness, nausea, left leg numbness, fever or chills. Objective: [] Vital Signs Temp 98.3 F 02/09/18 11:22 Pulse 92 02/09/18 11:22 Resp 18 02/09/18 12:40 BP 130/63 02/09/18 11:22 Pulse Ox 92 02/09/18 11:22 Intake & Output 02/08/18 02/09/18 02/09/18 18:59 06:59 18:59 Intake Total 1550 1895 1189 Output Total 1050 1650 200 Balance 500 245 989 Weight 230 lb Intake: IV Fluids 1400 985 949 ABX - CEFAZOLIN 55 LR 1400 985 894 IVPB 60 ABX - CEFAZOLIN 60 Oral 150 850 240 Output: Urine 0 200 Vines 850 1650 Estimated Blood Loss 200 Other: Estimated Void Large # Voids 1 Laboratory Last Values Hgb 12.2 g/dl (12.0-16.0) 02/09/18 05:21 Hct 36 % (35-47) 02/09/18 05:21 Plt Count 170 10^3/ul (150-450) 02/09/18 05:21 MPV 9.0 um3 (7.4-10.4) 02/09/18 05:21 INR (Anticoag Therapy) 1.07 (0.77-1.02) H 02/09/18 05:21 Sodium 134 mmol/L (139-145) L 02/09/18 05:21 Potassium 4.2 mmol/L (3.5-5.0) 02/09/18 05:21 Chloride 101 mmol/L (101-111) 02/09/18 05:21 Carbon Dioxide 24 mmol/L (22-32) 02/09/18 05:21 Anion Gap 9 mmol/L (2-11) 02/09/18 05:21 BUN 13 mg/dL (6-24) 02/09/18 05:21 Creatinine 0.64 mg/dL (0.51-0.95) 02/09/18 05:21 Est GFR ( Amer) 123.0 (>60) 02/09/18 05:21 Est GFR (Non-Af Amer) 95.6 (>60) 02/09/18 05:21 BUN/Creatinine Ratio 20.3 (8-20) H 02/09/18 05:21 Glucose 127 mg/dL (70-100) H 02/09/18 05:21 Calcium 8.7 mg/dL (8.6-10.3) 02/09/18 05:21 General: Well appearing, NAD LLE: Left knee dressing CDI. Drain pulled by Dr Taylor this morning without complication. DF/PF intact. Sensation intact distally. 2+ DP/PT and capillary refill less than two seconds distally Assessment: []POD 1 s/p left total knee arthroplasty Plan: []WBAT PT/OT Lovenox/ coumadin 8 mg today Continued pain control with Oxycodone and Percocet Intended DC home 02/10
[2018-02-09] MEDS: Atorvastatin* 10 MG TAB PO SCH (17:00)
[2018-02-09] MEDS ORDERED: Warfarin TAB(*) 4 MG PO ONE (17:00)
[2018-02-10] MEDS: oxyCODONE/Acetamin 5/325 MG* TAB PO PRN ×3 (01:12→11:35)
[2018-02-10] MEDS: oxyCODONE TAB* 5 MG TAB PO PRN ×3 (03:38→13:31)
[2018-02-10] MEDS: Levothyroxine TAB* 75 MCG TAB PO SCH (05:44)
[2018-02-10 06:16] LABS: Hematocrit 34 % (35-47); Hemoglobin 11.6 g/dl (12.0-16.0); Mean Platelet Volume 9.3 um3 (7.4-10.4); Platelet Count 154 10^3/ul (150-450)
[2018-02-10 07:06] LABS: INR 2.87 (0.77-1.02)
[2018-02-10] MEDS: Docusate CAP* 100 MG PO SCH (08:51)
[2018-02-10] MEDS: Magnesium Hydroxide LIQ* 30 ML UDC PO SCH (08:51)
[2018-02-10] MEDS: Venlafaxine EXT RELEASE CAP* 75 MG PO SCH (08:51)
[2018-02-10] MEDS: Lisinopril TAB* 10 MG PO SCH (08:51)
--- NOTE | 2018-02-10 10:13 | PN ---
Progress Note - Progress Note Date of Service: 02/10/18 SOAP: Subjective: []Patient seen OOB in chair. She is feeling well with well controlled left knee pain. Denies CP, SOB, dizziness, nausea, leg numbness. She is ready for discharge. Objective: [] Vital Signs Temp 98.5 F 02/10/18 07:36 Pulse 95 02/10/18 07:36 Resp 18 02/10/18 08:51 BP 134/72 02/10/18 07:36 Pulse Ox 94 02/10/18 08:00 Intake & Output 02/09/18 02/10/18 02/10/18 18:59 06:59 18:59 Intake Total 1549 310 620 Output Total 400 1800 Balance 1149 -1490 620 Intake: IV Fluids 949 ABX - CEFAZOLIN 55 LR 894 Oral 600 310 620 Output: Urine 400 1800 Other: Estimated Void Large # Voids 1 Laboratory Last Values Hgb 11.6 g/dl (12.0-16.0) L 02/10/18 05:35 Hct 34 % (35-47) L 02/10/18 05:35 Plt Count 154 10^3/ul (150-450) 02/10/18 05:35 MPV 9.3 um3 (7.4-10.4) 02/10/18 05:35 INR (Anticoag Therapy) 2.87 (0.77-1.02) H 02/10/18 05:35 Sodium 134 mmol/L (139-145) L 02/09/18 05:21 Potassium 4.2 mmol/L (3.5-5.0) 02/09/18 05:21 Chloride 101 mmol/L (101-111) 02/09/18 05:21 Carbon Dioxide 24 mmol/L (22-32) 02/09/18 05:21 Anion Gap 9 mmol/L (2-11) 02/09/18 05:21 BUN 13 mg/dL (6-24) 02/09/18 05:21 Creatinine 0.64 mg/dL (0.51-0.95) 02/09/18 05:21 Est GFR ( Amer) 123.0 (>60) 02/09/18 05:21 Est GFR (Non-Af Amer) 95.6 (>60) 02/09/18 05:21 BUN/Creatinine Ratio 20.3 (8-20) H 02/09/18 05:21 Glucose 127 mg/dL (70-100) H 02/09/18 05:21 Calcium 8.7 mg/dL (8.6-10.3) 02/09/18 05:21 General: Well appearing, NAD LLE: Left knee dressing CDI. Dressing changed by Dr Taylor this morning without complication. DF/PF intact. Sensation intact distally. 2+ DP/PT and capillary refill less than two seconds distally Assessment: []POD 2 s/p left total knee arthroplasty Plan: []WBAT PT/OT stop Lovenox/hold coumadin today DC home today
[2018-02-10 11:46] VITALS: BP 126/73
--- NOTE | 2018-02-11 09:41 | DS ---
DISCHARGE SUMMARY: DATE OF ADMISSION: 02/08/18 DATE OF DISCHARGE: PROVIDER: Dr. Parisa Taylor.* (DICTATED BY DE TAVERA) SENIOR RELATIONSHIP MANAGER: DE Feldman. PREOPERATIVE DIAGNOSIS: Severe end-stage degenerative osteoarthritis of the left knee joint. OPERATIVE PROCEDURE: Left total knee arthroplasty. HISTORY: Ms. Torres is a 57-year-old female with years of increasingly severe left knee pain. She failed conservative management with the antiinflammatories , pain medication, intraarticular injections, and physical therapy. She therefore elected to undergo left total knee arthroplasty. HOSPITAL COURSE: Ms. Torres was admitted to the [facility] on . She underwent a left total knee arthroplasty without complication. She recovered briefly in the PACU and then was transferred to the short stay surgical unit in stable condition. During this stay, she was seen by our hospitalist service, Physical Therapy, and Occupational Therapy. On postop day 1, she was well appearing, in no acute distress. Drain was pulled by Dr. Taylor without complication. Dorsiflexion and plantar flexion intact. Sensation intact distally. 2+ dorsalis pedis and posterior tibial pulse. Capillary refill less than 2 seconds distally. Hemoglobin 12.2, hematocrit 36. INR 1.07. On postop day 2, the patient was again well appearing. Dressing was changed by Dr. Taylor without complication. Dorsiflexion and plantar flexion intact. Sensation intact distally. 2+ dorsalis pedis and posterior tibial pulse. Capillary refill less than 2 seconds distally. Hemoglobin 11.6, hematocrit 34, INR 2.87. Vitals: Temperature 98.5, pulse 95, respiratory rate 18, blood pressure 134/72, pulse ox 94. DISCHARGE MEDICATIONS: Resume home medications. New medications included: 1. Acetaminophen 650 mg p.o. q.4 hours p.r.n., and max daily dose of 4000 mg from all sources. 2. Docusate 100 mg p.o. b.i.d., p.r.n. 3. Percocet 5/325 mg 1 to 2 tablets every 4 to 6 hours p.r.n., max daily dose of 10. 4. Warfarin 2 mg p.o., please take 1 to 3 tablets daily depending on INR dosing. DISCHARGE PLAN: 1. Patient will be weightbearing as tolerated. Okay to shower after postop day 3. Do not submerge the wound. 2. Continue physical therapy, occupational therapy exercises. to do wound check. 3. INRs will be drawn on Mondays and by home nursing. 4. Coumadin dosing - on 02/10/18, 02/11/18, 0 mg; on 02/12/18 and 02/13/18 - 2 mg each day. 5. On 02/14/18 recheck INR for further dosing instruction. 6. Percocet 5/325 mg 1 to 2 tablets every 4 to 6 hours as needed. 7. Maxzide 10 tablets per day. 8. Follow up with Dr. Taylor within 10 to 15 days. DE TAVERA [id number]/[facility] #: [id number] [place]
== END 2018-02-10 13:50 | disposition home health service (06) | DRG 302 ==
LOC: AA 08:06 → SSU 14:29
PROVIDERS: ADMIT Orthopaedic Surgery Adult Reconstructive Orthopaedic Surgery; ATTEND Orthopaedic Surgery Adult Reconstructive Orthopaedic Surgery
PROC: 0SRD069 Replacement of Left Knee Joint with Oxidized Zirconium on Polyethylene Synthetic Substitute, Cemented, Open Approach (ICD-10-PCS; principal; 2018-02-08 10:30)
DX: M17.12 Unilateral primary osteoarthritis, left knee (principal); G89.29 Other chronic pain; I10 Essential (primary) hypertension; E03.9 Hypothyroidism, unspecified; F32.9 Major depressive disorder, single episode, unspecified; F17.210 Nicotine dependence, cigarettes, uncomplicated; I45.10 Unspecified right bundle-branch block; M25.762 Osteophyte, left knee; K21.9 Gastro-esophageal reflux disease without esophagitis; M54.9 Dorsalgia, unspecified; E78.5 Hyperlipidemia, unspecified; Z83.3 Family history of diabetes mellitus; Z82.3 Family history of stroke; Z82.49 Family history of ischemic heart disease and other diseases of the circulatory system; Z87.442 Personal history of urinary calculi; Z79.01 Long term (current) use of anticoagulants
CPT/HCPCS: 36415; 80048; 85014; 85018; 85049; 85610; 88305; 88311; A9270-GY; C1776; J0690; J1650; J2250; J2704; J2795; J3010

== ENCOUNTER 2018-09-25 08:11 | Emergency (ER) | payer BC ==
[2018-09-25 08:24] VITALS: BP 132/68
[2018-09-25] MEDS ORDERED: Albuterol HFA INHALER* 8 gm MDI INH ONE (08:35)
--- NOTE | 2018-09-25 08:49 | UC ---
Respiratory Complaint HPI - HPI Summary HPI Summary: The patient is a 58-year-old female with a 10 day history of cough and congestion. For the past 2-3 days she has been having wheezing and chest tightness. Cough is occasionally productive. - History of Current Complaint Chief Complaint: UCRespiratory Stated Complaint: CONGESTION,COUGH,HEADACHE Time Seen by Provider: 09/25/18 08:28 Hx Obtained From: Patient Hx Last Menstrual Period: uteran ablasion Onset/Duration: Gradual Onset Timing: Constant Severity Initially: Mild Severity Currently: Moderate Pain Intensity: 0 Pain Scale Used: 0-10 Numeric Character: Cough: Nonproductive Aggravating Factors: Nothing Alleviating Factors: Bronchodilator Associated Signs And Symptoms: Positive: Wheezing, Nasal Congestion, Sinus Discomfort - Allergies/Home Medications Allergies/Adverse Reactions: Allergies Allergy/AdvReac Type Severity Reaction Status Date / Time No Known Allergies Allergy Verified 09/25/18 08:19 PMH/Surg Hx/FS Hx/Imm Hx Previously Healthy: Yes Endocrine History: Dyslipidemia Cardiovascular History: Hypertension Respiratory History: Bronchitis - Surgical History Surgical History: Yes Surgery Procedure, Year, and Place: Left Knee Replacement on 02/08/18 at [facility] [place] with Dr. Taylor. - Family History Known Family History: Positive: Hypertension - Social History Alcohol Use: None Substance Use Type: None Substance Use Comment - Amount & Last Used: Tramadol and hydrocodone Smoking Status (MU): Former Smoker Type: Cigarettes Amount Used/How Often: 1/2 PPD Length of Time of Smoking/Using Tobacco: 1/2 PPD x ~10 Years Have You Smoked in the Last Year: No When Did the Patient Quit Smoking/Using Tobacco: ~2012 Household Exposure Type: Cigarettes - Immunization History Most Recent Influenza Vaccination: Not the 2016/2016 Season Most Recent Pneumonia Vaccination: HAS NOT HAD Review of Systems All Other Systems Reviewed And Are Negative: Yes Constitutional: Positive: Fatigue Skin: Positive: Negative Eyes: Positive: Negative ENT: Positive: Negative Respiratory: Positive: Cough, Other - wheezing Cardiovascular: Positive: Negative Gastrointestinal: Positive: Negative Genitourinary: Positive: Negative Motor: Positive: Negative Neurovascular: Positive: Negative Musculoskeletal: Positive: Negative Neurological: Positive: Negative Psychological: Positive: Negative Physical Exam Triage Information Reviewed: Yes Appearance: Well-Appearing, No Pain Distress, Well-Nourished Vital Signs: Initial Vital Signs Temp 98 F 09/25/18 08:17 Pulse 86 09/25/18 08:17 Resp 18 09/25/18 08:17 BP 132/68 09/25/18 08:17 Pulse Ox 95 09/25/18 08:17 Eyes: Positive: Conjunctiva Clear ENT: Positive: Hearing grossly normal. Negative: Nasal congestion, Nasal drainage, Tonsillar swelling, Tonsillar exudate Neck: Positive: Supple, Nontender, No Lymphadenopathy Respiratory: Positive: Lungs clear, Normal breath sounds, No respiratory distress, No accessory muscle use Cardiovascular: Positive: RRR, No Murmur Abdomen Description: Positive: Nontender, No Organomegaly. Negative: CVA Tenderness (R), CVA Tenderness (L) Bowel Sounds: Positive: Present Musculoskeletal: Positive: ROM Intact, No Edema Neurological: Positive: Alert Psychological Exam: Normal Skin Exam: Normal UC Diagnostic Evaluation - Laboratory O2 Sat by Pulse Oximetry: 95 - normal/not hypoxic Respiratory Course/Dx - Differential Dx/Diagnosis Provider Diagnoses: acute bronchitis with bronchospasm Discharge - Sign-Out/Discharge Documenting (check all that apply): Patient Departure All imaging exams completed and their final reports reviewed: No Studies - Discharge Plan Condition: Stable Disposition: HOME Prescriptions: Amoxicillin PO (*) [Amoxicillin 875 MG (*)] 875 mg PO BID #14 tab predniSONE [Deltasone 20 MG TAB] 40 mg PO DAILY #10 tab Patient Education Materials: Acute Bronchitis (ED) Forms: *Work Release Referrals: Marcella Navarrete [Primary Care Provider] - 4 Days (IF NOT MARKEDLY IMPROVED) Additional Instructions: Use inhaler as directed recheck for new or worsening symptoms - Billing Disposition and Condition Condition: STABLE Disposition: Home
== END 2018-09-25 09:00 | disposition home or self-care (01) ==
LOC: UCCORT 08:11
DX: J20.9 Acute bronchitis, unspecified (principal); I10 Essential (primary) hypertension; Z87.891 Personal history of nicotine dependence
CPT/HCPCS: 99212; A9270-GY; G0463

== ENCOUNTER 2018-11-20 09:25 | Emergency (ER) | payer BC ==
[2018-11-20 09:36] VITALS: BP 156/71
[2018-11-20] MEDS ORDERED: Albuterol 2.5 MG/3 ML NEB.SOL* (0.083%) INH ONE (09:45)
--- NOTE | 2018-11-20 09:54 | UC ---
UC General HPI - HPI Summary HPI Summary: 3 day hx sore throat. now has a cough. FB sensation L side of throat but "I know there is nothing there" no fever, cp or sob. - History of Current Complaint Chief Complaint: UCGeneralIllness Stated Complaint: ST Time Seen by Provider: 11/20/18 09:30 Hx Obtained From: Patient Hx Last Menstrual Period: uteran ablasion Onset/Duration: Gradual Onset Timing: Constant Pain Intensity: 6 Associated Signs & Symptoms: Positive: Cough. Negative: Chest Pain, Fever - Allergy/Home Medications Allergies/Adverse Reactions: Allergies Allergy/AdvReac Type Severity Reaction Status Date / Time No Known Allergies Allergy Verified 11/20/18 09:33 PMH/Surg Hx/FS Hx/Imm Hx Endocrine History: Dyslipidemia Cardiovascular History: Hypertension - Surgical History Surgical History: Yes Surgery Procedure, Year, and Place: Left Knee Replacement on 02/08/18 at [facility] [place] with Dr. Taylor. - Family History Known Family History: Positive: Hypertension - Social History Alcohol Use: None Substance Use Type: None Substance Use Comment - Amount & Last Used: Tramadol and hydrocodone Smoking Status (MU): Former Smoker Type: Cigarettes Amount Used/How Often: 1/2 PPD Length of Time of Smoking/Using Tobacco: 1/2 PPD x ~10 Years Have You Smoked in the Last Year: No When Did the Patient Quit Smoking/Using Tobacco: ~2012 Household Exposure Type: Cigarettes - Immunization History Most Recent Influenza Vaccination: Not the 2015/2016 Season Most Recent Pneumonia Vaccination: HAS NOT HAD Vaccination Up to Date: Yes Review of Systems All Other Systems Reviewed And Are Negative: Yes Constitutional: Positive: Negative Skin: Positive: Negative Eyes: Positive: Negative ENT: Positive: Sore Throat Respiratory: Positive: Cough Cardiovascular: Positive: Negative Gastrointestinal: Positive: Negative Genitourinary: Positive: Negative Motor: Positive: Negative Neurovascular: Positive: Negative Musculoskeletal: Positive: Negative Neurological: Positive: Negative Psychological: Positive: Negative Physical Exam Triage Information Reviewed: Yes Appearance: Well-Appearing Vital Signs: Initial Vital Signs Temp 97.6 F 11/20/18 09:31 Pulse 98 11/20/18 09:31 Resp 16 11/20/18 09:31 BP 156/71 11/20/18 09:31 Pulse Ox 96 11/20/18 09:31 Vital Signs Reviewed: Yes Eyes: Positive: Conjunctiva Clear ENT: Positive: Pharyngeal erythema - L>R(slightly), TMs normal, Uvula midline. Negative: Nasal congestion, Nasal drainage, Trismus, Muffled voice Neck: Positive: Supple, Tenderness @ - peritonsilar nodes that are enlarged Respiratory: Positive: No respiratory distress, Decreased breath sounds, Other: - faint bilateral wheezes and occasional rhonchi. Cardiovascular: Positive: RRR, No Murmur Abdomen Description: Positive: Nontender, No Organomegaly, Soft Bowel Sounds: Positive: Present Musculoskeletal: Positive: ROM Intact Neurological: Positive: Alert Psychological: Positive: Age Appropriate Behavior Skin Exam: Normal Diagnostics - Laboratory Diagnostic Studies Completed/Ordered: rapid strep=negative - Radiology No standard instances Radiology Interpretation Completed By: Radiologist - IMPRESSION: CHRONIC FINDINGS INCLUDE PERSISTENT ELEVATION OF THE RIGHT HEMIDIAPHRAGM WITH A STABLE ANTERIOR RIGHT LUNG BASE SCARRING VERSUS ATELECTASIS, IN THIS OTHERWISE NONACUTE CHEST X-RAY. Re-Evaluation - Re-Evaluation First Eval Re-Evaluation Time: 10:05 Change: Improved - much better aeration and less wheezy. pt states tx helpful. Course/Dx - Differential Dx - Multi-Symptom Differential Diagnoses: Other - strep throat, peritonsil abscess, pharyngeal cellulitis, bronchitis, pneumonia. - Diagnoses Provider Diagnosis: Cellulitis of pharynx, Bronchitis Discharge - Sign-Out/Discharge Documenting (check all that apply): Patient Departure All imaging exams completed and their final reports reviewed: Yes - Discharge Plan Condition: Stable Disposition: HOME Prescriptions: Albuterol HFA INHALER* [Ventolin HFA Inhaler*] 2 puff INH Q6H #1 mdi Amoxicillin/Clavulanate TAB* [Augmentin TAB 875*] 875 mg PO BID 10 Days #20 tab predniSONE TAB* [Deltasone 20 MG TAB*] 40 mg PO DAILY 5 Days #10 tab Patient Education Materials: Pharyngitis (ED), Acute Bronchitis (ED) Forms: *Work Release Referrals: Marcella Navarrete [Primary Care Provider] - 5 Days - Billing Disposition and Condition Condition: STABLE Disposition: Home - Attestation Statements Provider Attestation: I was available for consult. This patient was seen by the DEB. The patient was not presented to , seen by or examined by mn -Darshana Dailey MD
== END 2018-11-20 10:18 | disposition home or self-care (01) ==
LOC: UCCORT 09:25
DX: J39.1 Other abscess of pharynx (principal); J40 Bronchitis, not specified as acute or chronic; I10 Essential (primary) hypertension
CPT/HCPCS: 71046; 87651; 99212; G0463

== ENCOUNTER 2019-08-30 08:28 | Emergency (ER) | payer BC ==
--- OUTSIDE RECORDS SUMMARY | 2019-08-30 08:34 | XMS REPORT | Continuity of Care Document ---
:1960 External Reference #:[id number] Author Name Marcella Navarrete NP Address [address] [place] [id number] Care Team Providers Name Role Phone Parisa Taylor DR - Adult Care Team Information [employer] [phone] [facility] Care Team Information [employer] [place] [phone] [facility] Care Team Information [employer] Problems Active Problems Provider Date Benign essential hypertension Debbie Isidro NP Onset: 08/06/2003 Hypothyroidism Serafin Roger MD Onset: 03/07/2008 Localized, primary osteoarthritis Marcella Navarrete NP Onset: 10/09/2014 Low back pain Marcella Navarrete [employer] Onset: 01/01/2014 Mixed hyperlipidemia Marcella Navarrete [employer] Onset: 03/21/2012 Vitamin D deficiency Marcella Navarrete [employer] Onset: 06/10/2010 Gastroesophageal reflux disease Marcella Navarrete [employer] Onset: 12/11/2009 Insomnia Marcella Navarrete [employer] Onset: 12/11/2009 Social History Type Date Description Comments Sex Unknown Tobacco Use Start: Unknown End: Former Cigarette Smoker quit fully 04/2013. Unknown ETOH Use Occasionally consumes alcohol Recreational Drug Use Denies Drug Use Tobacco Use Start: Unknown End: Patient is a former Unknown smoker Exercise Limitations Joint Pain Allergies, Adverse Reactions, Alerts Description No Known Drug Allergies Medications Active Medications SIG Qnty Indications Ordering Date Provider Levothyroxine Sodium take 1 tablet by 90tabs E03.9 Digiovanna, 07/04/2019 mouth daily alone Marcella, [employer] 88mcg Tablets and on empty stomach Trazodone HCL Take 1 Tablet By 90tabs G47.00 Digiovanna, 03/11/2018 100mg Mouth Everyday AT Marcella, [employer] Tablets Bedtime Lisinopril Take 1 Tablet 90tabs I10 Digiovanna, 07/25/2015 10mg Tablets Daily Marcella, [employer] Venlafaxine HCL ER Take 1 Capsule 90caps N95.1 Digiovanna, 04/14/2015 75mg Daily Marcella, [employer] Caps ER 24HR G47.00 Simvastatin Take 1 Tablet 90tabs E78.2 Digiovanna, 09/26/2012 10mg Tablets Every Evening Marcella, [employer] Acetaminophen Extra 2 po q4h prn M19.91 Unknown Strength 500mg Tablets Vitamin D 2 by mouth every E55.9 Unknown 1000Unit Tablets day Immunizations CPT Code Status Date Vaccine Reaction Lot # [id number] Given 09/07/2018 Flu Vaccine NOS Given at [facility], [address] [id number] Given 08/16/2015 Fluvirin Immunization [facility] 31492 Given 04/16/2015 Pneumococcal 23 Immunization [id number] Adult Or Immunosuppressed Patient 02328 Given 07/20/2014 Afluria Or Fluvirin Flu Vac Intramuscular 60290 Given 08/16/2012 Afluria Or Fluvirin Flu Vac Intramuscular 76579 Given 09/18/2011 Afluria Or Fluvirin Flu Vac VIS DATE 06/09/11 Intramuscular 82290 Given 12/11/2009 Tdap (Adacel) Ages 7 And Above Only 96096 Given 09/29/2002 Afluria Or Fluvirin Flu Vac Intramuscular 78019 Refused 11/02/2017 Influenza Vac, Quadrivalent, Split, 0.5mL Dosage, Im Use Vital Signs Date Vital Result Comment 07/04/2019 8:18am Weight 283.00 lb Heart Rate 76 /min BP Systolic 132 mmHg BP Diastolic 78 mmHg Respiratory Rate 18 /min Height 65.5 inches 5'5.50" TONIA ROSAS 07/04/19 BMI (Body Mass Index) 46.4 kg/m2 12/19/2018 8:51am Weight 265.00 lb Heart Rate 84 /min BP Systolic 124 mmHg BP Diastolic 78 mmHg Respiratory Rate 18 /min Height 65.25 inches 5'5.25" 01/17/18 BMI (Body Mass Index) 43.8 kg/m2 Results Test Date Facility Test Result H/L Range Note Laboratory test 06/27/2019 [facility] TSH 4.19 uIU/mL 0.35-4.94 1 finding Lipid Treatment 06/27/2019 [facility] Cholesterol 189 mg/dL 50-199 Triglycerides 153 mg/dL 30-200 HDL 49 mg/dL 35-85 2 Chol/ HDL Ratio 3.9 ratio 3.7-5.6 VLDL 31 mg/dL High 2-29 LDL (Calc) 110 mg/dL High 20-99 3 Alt 19 U/L 3-42 Ast 14 U/L 8-42 Basic (BMP) 06/27/2019 [facility] Sodium 138 mmol/L 135-146 4 Potassium 4.4 mmol/L 3.5-5.2 Chloride# 101 mmol/L 97-110 5 Carbon Dioxide 28 mmol/L 24-34 Glucose 100 mg/dL 70-105 BUN 16 mg/dL 6-26 Creatinine 0.8 mg/dL 0.5-1.4 Calcium 9.6 mg/dL 8.5-10.5 6 Female Egfr 82 >60 7 Male Egfr 98 >60 8 Anion Gap 9 mmol/L 5-15 9 1 to be done 1 week prior to next OV 2 Per NCEP ATP III Guidelines: Results lower than 40 mg/dL are suggestive of increased risk for coronary artery disease. Results > or = to 60 mg/dL are considered a negative risk factor. 3 Per NCEP ATP III Guidelines: Normal Population <130 Patients with medical conditions: CHD/DM Optimal: <100 Borderline high: 130-159 High: 160-189 Very high: >189 4 Updated reference range on new analyzer 5 Updated reference range on new analyzer 6 Updated reference range 03-15-2019 7 Concerning GFR Guidelines for Americans: Normal function or mild renal disease, if clinically at risk: >/= 60 mL/min Moderately decreased: 30-59 Severely decreased: 15-29 Renal failure: <15 There is reduced accuracy above 60ml/min/1.73 m squared, but the numeric value may be clinically useful in the near 60 range 8 Concerning GFR Guidelines: Normal function or mild renal disease, if clinically at risk: >/= 60 mL/min Moderately decreased: 30-59 Severely decreased: 15-29 Renal failure: <15 There is reduced accuracy above 60ml/min/1.73 m squared, but the numeric value may be clinically useful in the near 60 range Glomerular Filtration Rate (GFR) is estimated based on the CKD-EPI equation, which assumes a steady state for [...] drugs that are excreted by the kidneys. 9 Updated Reference Range -2017 Procedures Date Code Description Status 02/20/2019 [id number] Colonoscopy Completed 10/05/2018 [id number] Mammogram Completed 04/16/2015 [id number] Mammogram Completed Medical Devices Description No Information Available Encounters Description No Information Available Assessments Date Code Description Provider 07/04/2019 Z00.00 Encounter for general adult medical Digiovanna, Marcella, [employer] examination without abnormal findings 07/04/2019 I10 Essential (primary) hypertension Digiovanna, Marcella, [employer] 07/04/2019 E78.2 Mixed hyperlipidemia Digiovanna, Marcella, [employer] 07/04/2019 E03.9 Hypothyroidism, unspecified Digiovanna, Marcella, [employer] 07/04/2019 K21.9 Gastro-esophageal reflux disease without Digiovanna, Marcella, [employer] esophagitis 07/04/2019 G47.00 Insomnia, unspecified Digiovanna, Marcella, [employer] 07/04/2019 E55.9 Vitamin D deficiency, unspecified Digiovanna, Marcella, [employer] 07/04/2019 M54.5 Low back pain Digiovanna, Marcella, [employer] 07/04/2019 M19.91 Primary osteoarthritis, unspecified site Digiovanna, Marcella, [employer] 07/04/2019 Z12.31 Encounter for screening mammogram for Digiovanna, Marcella , [employer] malignant neoplasm of breast 07/04/2019 Z13.31 Encounter for screening for depression Digiovanna, Marcella, [employer] 07/04/2019 Z68.42 Body mass index (BMI) 45.0-49.9, adult Marcella Navarrete NP 06/27/2019 E03.9 Hypothyroidism, unspecified Jayjay Navarrete MD 06/27/2019 E03.9 Hypothyroidism, unspecified Schedule, Laboratory 06/27/2019 E78.2 Mixed hyperlipidemia Jayjay Navarrete MD 06/27/2019 E78.2 Mixed hyperlipidemia Schedule, Laboratory 06/27/2019 I10 Essential (primary) hypertension Jayjay Navarrete MD 06/27/2019 I10 Essential (primary) hypertension Schedule, Laboratory 06/27/2019 E03.9 Hypothyroidism, unspecified [facility] 06/27/2019 E78.2 Mixed hyperlipidemia [facility] Plan of Treatment Future Appointment(s):01/03/2020 7:35 am - Schedule, [facility] 8:30 am - Suzie Carbajal [facility]07/05/2020 8:30 am - Suzie Carbajal NP [facility]07/04/2019 - Marcella Navarrete NPZ00.00 Encounter for general adult medical examination without abnormal findingsComments:Continue to attempt weight loss and increased exercise. Tdap due 2019Recommend annual flu vaccineMammogram due in NovColonoscopy 2Recommend ShingrixFollow up:1 yr. for routine PE (Rosalia)I10 Essential (primary) hypertensionNew Labs:Basic (BMP), Scheduled: 01/01/20CBC with Auto Diff-fcmg, Scheduled: 01/01/20Comments: Continue Lisinopril 10mg daily.Advised following BPs at home, bring readings to next scheduled appointment.Move appt. up if readings persisently high.Continue to avoid excess sodium. Continue to attempt to increase daily exercise. Will recheck labs prior to next OV.Follow up:6 months for routine F/U, 30', labs 1 week prior to OV (Rosalia)E78.2 Mixed hyperlipidemiaNew Labs:Lipid Treatment, Scheduled: 01/01/20Comments:Continue Simvastatin, refilled today.Continue to limit fat and cholesterol in diet.E03.9 Hypothyroidism, unspecifiedNew Medication:Levothyroxine Sodium 88 mcg - take 1 tablet by mouth daily alone and on empty stomachNew Labs:TSH, Scheduled: 01/01/20TSH, Ordered: 07/04/19Comments: Increase dose of Levothyroxine Will recheck TSH in early Sep 2019K21.9 Gastro- esophageal reflux disease without esophagitisComments:Continue as needed TUMs and GcmwfjlsgcC95.00 Insomnia, unspecifiedComments:Continue current dose of Venlafaxine and TrazodoneEKG updated today - dugzgiV01.9 Vitamin D deficiency, unspecifiedNew Labs:Vit D 25Oh, Scheduled: 01/01/20Comments:Continue current itelnawydpL95.5 Low back painComments:Continue to monitorTylenol or ibuprofen as mdfluyN83.91 Primary osteoarthritis, unspecified siteComments:Follow through with plan for surgery with Dr. TaylorZ12.31 Encounter for screening mammogram for malignant neoplasm of breastNew Xrays:Mammogram Screening, Bilateral Incl CAD When Performe, Ordered: 07/04/19Z13.31 Encounter for screening for wwnmirkyfiM50.42 Body mass index (BMI) 45.0-49.9, adultComments:Encouraged return to exercise.Encouraged well balanced healthy diet with portion control. Functional Status Description No Information Available Mental Status Description No Information Available Referrals Refer to Reason for Referral Status Appt Date [facility] Initial screening colonoscopy Closed 2018 following positive cologuard Refer to [facility] as requested i called and spoke with patient and she is aware of appt 2/27am per linked document patient has been notified 3/8am [address] [place] [id number] [phone]
[2019-08-30 08:47] VITALS: BP 123/68
--- NOTE | 2019-08-30 09:37 | UC ---
Neck Pain HPI - HPI Summary HPI Summary: neck pain x 1 week, the pain is dull, 6 out 10 , radiating to her right shoulder worse with movement , better with heat and rest, + tingling of her right arm down to her fingers, no known injury - History of Current Complaint Chief Complaint: UCBackPain Stated Complaint: PAIN IN NECK,TINGLING AND NUMBNESS IN RT HAND Time Seen by Provider: 08/30/19 08:58 Hx Obtained From: Patient Hx Last Menstrual Period: uteran ablasion ?: No Onset/Duration: Gradual Onset, Lasting Weeks - 7, Still Present Severity: Moderate Pain Intensity: 5 Pain Scale Used: 0-10 Numeric Location: Diffuse Character: Dull Aggravating Factors: Movement Alleviating Factors: Heat Associated Signs & Symptoms: Positive: Paresthesia. Negative: Swelling, Redness , Bruising, Fever, Nuchal Rigity, Weakness, Headache - Allergies/Home Medications Allergies/Adverse Reactions: Allergies Allergy/AdvReac Type Severity Reaction Status Date / Time No Known Allergies Allergy Verified 08/30/19 08:40 PMH/Surg Hx/FS Hx/Imm Hx Endocrine History: Thyroid Disease Cardiovascular History: Hypertension - Surgical History Surgical History: Yes Surgery Procedure, Year, and Place: [place]18 [place] [facility] [place]. - Family History Known Family History: Positive: Hypertension - Social History Alcohol Use: None Substance Use Type: None Substance Use Comment - Amount & Last Used: Tramadol and hydrocodone Smoking Status (MU): Heavy Every Day Tobacco Smoker Type: Cigarettes Amount Used/How Often: 1/2 PPD Length of Time of Smoking/Using Tobacco: 1/2 PPD x ~10 Years Have You Smoked in the Last Year: No When Did the Patient Quit Smoking/Using Tobacco: ~2012 Household Exposure Type: Cigarettes - Immunization History Most Recent Influenza Vaccination: Not the 2016/2016 Season Most Recent Pneumonia Vaccination: HAS NOT HAD Vaccination Up to Date: Yes Review of Systems All Other Systems Reviewed And Are Negative: Yes Constitutional: Positive: Negative Skin: Positive: Negative Eyes: Positive: Negative ENT: Positive: Negative Is Patient Immunocompromised?: No Physical Exam Triage Information Reviewed: Yes Appearance: Pain Distress, Obese Vital Signs: Initial Vital Signs Temp 98.2 F 08/30/19 08:42 Pulse 79 08/30/19 08:42 Resp 17 08/30/19 08:42 BP 123/68 08/30/19 08:42 Pulse Ox 97 08/30/19 08:42 Vital Signs Reviewed: Yes Eyes: Positive: Conjunctiva Clear ENT: Positive: Normal ENT inspection, Hearing grossly normal, Pharynx normal Neck: Positive: Supple, Nontender, No Lymphadenopathy Respiratory: Positive: Chest non-tender, Lungs clear, Normal breath sounds Cardiovascular: Positive: RRR, No Murmur, Pulses Normal Abdominal Exam: Normal Abdomen Description: Positive: Nontender, Soft Bowel Sounds: Positive: Present Musculoskeletal: Positive: Strength Intact, ROM Intact, No Edema, Other: - right shoulder: normal exam Skin Exam: Normal Neck Pain Course/Dx - Differential Dx/Diagnosis Provider Diagnosis: Thoracic outlet syndrome Discharge ED - Sign-Out/Discharge Documenting (check all that apply): Patient Departure All imaging exams completed and their final reports reviewed: No Studies - Discharge Plan Condition: Stable Disposition: HOME Prescriptions: Cyclobenzaprine TAB* [Flexeril 10 MG TAB*] 10 mg PO BID PRN #20 tab PRN Reason: Pain - Moderate Naproxen [Naproxen 500 mg tab] 500 mg PO BID #20 tablet. Patient Education Materials: Thoracic Outlet Syndrome (ED) Referrals: Marcella Navarrete [Primary Care Provider] - 2 Weeks - Billing Disposition and Condition Condition: STABLE Disposition: Home
== END 2019-08-30 09:13 | disposition home or self-care (01) ==
LOC: UCCORT 08:28
DX: G54.0 Brachial plexus disorders (principal); I10 Essential (primary) hypertension; E66.9 Obesity, unspecified; F17.210 Nicotine dependence, cigarettes, uncomplicated; Z96.652 Presence of left artificial knee joint
CPT/HCPCS: 99212; G0463

== ENCOUNTER 2024-09-22 11:47 | Observation (INO) ==
[~2024-09-22 11:47] MED LIST changes: -Buffered Lidocaine 0.9% SYRIN* 5 ML/SYR SYRINGE INTRADERM ONE; +Naloxone 0.4 mg VIAL 0.4 mg/ml 1 ml VIAL IV PRN; +Ondansetron 4 mg VIAL 2 MG/ML 2 ml VIAL IV PRN; -Sodium Citrate/Citric Acid* 15 ML UDC PO ONE
[2024-09-22] MEDS ORDERED: ceFAZolin 2 GM PREMIX 2 GM/50 ML BAG ONE (12:18)
[2024-09-22] MEDS ORDERED: Tranexamic Acid 1 GM/100ML BAG 2,000 MG/200 ML BAG IV ONE (12:18)
[2024-09-22 12:37] LABS: Rapid COVID-19 Molecular Undetected (Undetected)
[2024-09-22 12:41] LABS: Hemoglobin 14.8 g/dL (11.5-14.3); Mean Corpuscular Hemoglobin 32.9 pg (27-33); Mean Corpuscular Hgb Conc 34.3 g/dL (31-36); Mean Corpuscular Volume 95.9 fL (80-97); Mean Platelet Volume 9.4 fL (7.5-11.2); Platelet Count 222 10^3/uL (150-450); Red Blood Count 4.49 10^6/uL (3.63-4.92); White Blood Count 8.1 10^3/uL (3.8-11.8)
[2024-09-22] MEDS ORDERED: Famotidine IV 10 MG/ML 2 ml VIAL (20 mg) ONE (12:45)
[2024-09-22] MEDS: Buffered Lidocaine 1% SYRIN 1 ml INTRADERM ONE (12:51)
[2024-09-22] MEDS: Famotidine IV 10 MG/ML 2 ml VIAL (20 mg) IV ONE (12:51)
[2024-09-22] MEDS: Lactated Ringers 1000 ml BAG 1,000 ML IV SCH ×2 (12:52→20:25)
[2024-09-22] MEDS ORDERED: Dexamethasone IV 4 MG/ML VIAL 1 ml VIAL ONE (13:18)
[2024-09-22] MEDS ORDERED: Midazolam 2 mg/2 ml VIAL 1 mg/ml 2 ml VIAL (2 mg) ONE (13:18)
[2024-09-22] MEDS ORDERED: ROPIVACAINE 5 MG/ML 30 ML BTL (0.5%) ONE ×2 (13:31→13:51)
[2024-09-22 13:52] LABS: Calcium 9.8 mg/dL (8.6-10.3); Creatinine, Serum 0.79 mg/dL (0.51-0.95); Potassium 4.4 mmol/L (3.5-5.0); eGFR CKD-EPI 83.5 (>60)
[2024-09-22] MEDS ORDERED: Propofol 10 MG/ML 20 ML BTL ONE ×4 (14:04→16:49)
[2024-09-22] MEDS ORDERED: fentaNYL 100 mcg/2 ml 50 MCG/ML VIAL ONE ×3 (14:04→18:25)
[2024-09-22] MEDS ORDERED: Calcium Carb (TUMS) 500 mg CHEW TAB PO PRN (17:10)
[2024-09-22] MEDS ORDERED: Morphine 2 MG/ML SYRINGE IV PRN (17:10)
[2024-09-22] MEDS ORDERED: Lactulose 30 ml UDC PO PRN (17:10)
[2024-09-22] MEDS ORDERED: Ondansetron ODT 4 mg TAB 4 MG TAB PO PRN (17:10)
[2024-09-22] MEDS ORDERED: Ondansetron 4 mg VIAL 2 MG/ML 2 ml VIAL IV PRN (17:10)
[2024-09-22] MEDS ORDERED: Magnesium Hydroxide LIQ 30 ML UDC PO PRN (17:10)
[2024-09-22] MEDS: fentaNYL 100 mcg/2 ml 50 MCG/ML VIAL IV PRN (17:24)
[2024-09-22] MEDS: fentaNYL 100 mcg/2 ml 50 MCG/ML VIAL IV ONE (18:31)
[2024-09-22] MEDS: Magnesium Hydroxide LIQ 30 ML UDC PO SCH (20:16)
[2024-09-22] MEDS: ceFAZolin 2 GM PREMIX 2 GM/50 ML BAG IV SCH (22:16)
[2024-09-23 06:23] LABS: Hematocrit 35.6 % (35-45); Mean Platelet Volume 9.7 fL (7.5-11.2); Platelet Count 192 10^3/uL (150-450)
[2024-09-23 06:57] LABS: Creatinine, Serum 0.78 mg/dL (0.51-0.95); Potassium 4.5 mmol/L (3.5-5.0); eGFR CKD-EPI 84.8 (>60)
[2024-09-23] MEDS: Vitamin THERAPEUTIC TAB PO SCH (09:04)
[2024-09-23] MEDS: Venlafaxine XR 75 mg PO SCH (09:04)
[2024-09-23 13:47] VITALS: BP 152/67
== END 2024-09-23 15:02 | disposition home or self-care (01) ==
LOC: SSU 11:47 → OR 11:47
PROVIDERS: ADMIT Orthopaedic Surgery Adult Reconstructive Orthopaedic Surgery; ATTEND Orthopaedic Surgery Adult Reconstructive Orthopaedic Surgery